=== PATIENT | male | born 1965 | race Caucasian/White ===

== ENCOUNTER 2022-01-05 00:25 | Inpatient (IN) ==
[2022-01-05] MEDS ORDERED: ONDANSETRON INJ 2 MG/ML 2 ML VIAL IV STA (01:21)
[2022-01-05] MEDS ORDERED: MoRPHine SULFATE 4 MG/ML 1 ML CARP\\VIAL IV STA (01:21)
[2022-01-05] MEDS ORDERED: SODIUM CHLORIDE 0.9% 500 ML IV ONE (01:22)
--- NOTE | 2022-01-05 01:24 | Emergency Department Note ---
Impression & Plan ST elevation (STEMI) myocardial infarction involving left anterior descending coronary artery, Liver mass, Chest pain ADMIT ED Provider Note HPI: The patient is a 56-year-old male who presents the emergency department with a chief complaint of epigastric "bloating" that he feels is radiating up into his chest for the past several days. Patient states he also has had some pain in his left shoulder that radiates down his left arm, he mentions that he has a history of shoulder pain and he has had this type of pain previously although this is a new episode. Patient denies any vomiting, states he does feel a sensation of increased gas and he has had belching and flatulence recently. On arrival here to the ED the patient is hemodynamically stable, he is in no acute distress on my initial assessment. ROS: -Cardio: Epigastric and substernal chest discomfort, left arm pain -GI: Sensation of gaseous distention *10 point review systems was conducted and is otherwise negative unless stated above *Outpatient medications and allergy history reviewed PE: General: Alert, NAD HEENT: Normocephalic, atraumatic Eyes: Extraocular eye movement is intact, no scleral erythema Pulmonary: Clear to auscultation bilaterally, no wheezing Cardio: Regular rate and rhythm GI: Abdomen is soft, nontender : No suprapubic tenderness MSK: No evidence of trauma or malformation of the extremities, no edema Skin: No evidence of rash Neuro: Alert, no focal deficits Psychiatric: Cooperative guest relations representative: - An order was placed for continuous cardiac monitoring - Patient was noted to be in sinus rhythm with a rate of 75 EKG # 1: Rate: 64 Rhythm: Normal sinus rhythm Intervals: Within normal limits ST changes: No ST elevation Time: 0039 EKG # 2: Rate: 68 Rhythm: Normal sinus rhythm Intervals: Within normal limits ST changes: No ST elevation noted in lead aVL in lead V2 with reciprocal ST depressions noted in the inferior leads Time: 0226 Medical Decision Making: Patient presented to the emergency department with a chief complaint of epigastric pain, chest pain, sensation of gastric distention, as well as left arm pain. On arrival here to the ED the patient was in no acute distress. IV was established, lab work obtained, EKG was obtained shortly after arrival, patient was placed on comptometrist. EKG does not show any acute ischemic c hanges initially, troponin did return elevated at approximately 200, ultrasound imaging of the gallbladder was obtained that shows evidence of an irregular appearing solid liver mass with vascular supply concerning for neoplasm. On my reevaluation when the patient returned from ultrasound he was having chest discomfort again, repeat EKG was obtained at 0226 that shows evidence of ST elevation in leads aVL and V2, this is consistent with acute STEMI. Heart alert was activated, patient was given p.o. aspirin. He was given an additional dose of morphine. Chest x-ray does not show any obvious widened mediastinum, patient is not significantly hypertensive and morphine did improve his pain. Low suspicion at this time for aortic dissection. Patient was evaluated by the hot dog vender following activation of heart alert, he was taken to the cardiac catheterization lab in stable condition for further care. We will plan for admission to the hospitalist service following cardiac catheterization, case was discussed with the on-call hospitalist for [facility], Dr. Huizar, who is updated and aware of the above findings including finding of liver mass on ultrasound imaging. US RUQ: Findings: PANC: LIMITED VIS DUE TO OVERLYING BOWEL GAS. LIVER: 20.6 cm. MASS WITH IRREGULAR BORDERS THAT APPEARS TO HAVE A VASCULAR SUPPLY AND 7mm CALC WITHIN. BEGINS IN LEFT LOBE OF LIVER AND EXTENDS INTO MIDLINE, measures 3.3 X 5.5 X 6.3. cm -ENTIRE RIGHT LOBE ECHOGENIC, -HYPOECHOIC LESION WITH TARGET APPEARANCE IN RIGHT LOBE, measures 1.4 X 1.5 X 1.4 cm. GB: WALL 1.4 mm. SLUDGE. NEGATIVE SCHAFER'S SIGN. 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 Radiologist: Edwin Echavarria MD * CRITICAL CARE TIME: ( 45 ) minutes -Treatment of acute ST elevation myocardial infarction requiring specialty consultation with interventional radiology, arrangement of transfer to cardiac catheterization lab for further care, interpretation of diagnostic studies including EKG, time spent at the bedside Diagnosis: 1. STEMI, acute 2. Liver mass 3. Chest pain, acute Disposition: Admission Cordell Machado DO Emergency Medicine Past Med/Surg History Medical History (Updated 01/05/22 @ 06:45 by Cordell Machado DO) No pertinent past medical history Surgical History No pertinent past surgical history Social History Smoking Status: Never smoker Hx Alcohol Use: No Hx Substance Use: No Preferred Language: Mauritian Communication Ability: Effective Radar Systems Engineer Required: No Beliefs That Will Affect Care: None Current Living Situation: Spouse Feels Safe at Home: Yes Safety Concerns: Feels Safe At This Time Assistive Devices: Glasses Allergies Allergies Allergy/AdvReac Type Severity Reaction Status Date / Time No Known Allergies Allergy Unverified 12/18/15 14:52 Home Meds Home Medications Medication Instructions Recorded Confirmed Clobetasol Propionate 0.05% 1 applic EXT PRN ALLERGIC REACTION 03/15/13 (Temovate 0.05%) ##0 TACROLIMUS (TOPICAL) (PROTOPIC) 1 applic topical ALLERGIC REACTION 03/15/13 ##0 Multivitamin 1 tab PO DAILY #0 tabs 12/18/15 VITAMIN E (VITAMIN E/D-ALPHA) 1 cap PO DAILY ##0 12/18/15 Previous Rx's Medication Instructions Recorded ASPIRIN (ASPIRIN EC) 81 mg PO DAILY ##30 03/16/13 Results & Data (ED) Vital Signs Vital Signs - 24 hr 01/05/22 00:35 01/05/22 01:30 01/05/22 02:21 Temperature 36.1 C L Temperature Source Temporal Artery Scan Pulse Rate 66 66 Pulse Rate [Apical] 73 Pulse Rate from SpO2 Sensor Respiratory Rate 18 16 20 Respiratory Effort / Characteristics Non-Labored Spontaneous Respiratory Depth Normal Blood Pressure 110/76 144/98 H Blood Pressure [Left Arm] 127/94 Blood Pressure Mean 87 113 Blood Pressure Mean [Left Arm] 105 Pulse Oximetry 96 98 99 Oxygen Delivery Method Room Air Room Air Room Air Sepsis Recent Fever Within 48 Hours No Sepsis New/Unexplained Change in Mental Status No Sepsis Action Taken by Nursing No Action Required 01/05/22 02:23 01/05/22 02:22 01/05/22 02:30 Temperature Temperature Source Pulse Rate 77 Pulse Rate [Apical] Pulse Rate from SpO2 Sensor 78 Respiratory Rate 19 Respiratory Effort / Characteristics Respiratory Depth Blood Pressure 127/94 Blood Pressure [Left Arm] Blood Pressure Mean 105 Blood Pressure Mean [Left Arm] Pulse Oximetry 99 98 Oxygen Delivery Method Room Air Room Air Sepsis Recent Fever Within 48 Hours Sepsis New/Unexplained Change in Mental Status Sepsis Action Taken by Nursing 01/05/22 02:51 01/05/22 03:00 Temperature Temperature Source Pulse Rate 68 63 Pulse Rate [Apical] Pulse Rate from SpO2 Sensor 68 Respiratory Rate 17 21 Respiratory Effort / Characteristics Respiratory Depth Blood Pressure 108/73 95/67 L Blood Pressure [Left Arm] Blood Pressure Mean 84 76 Blood Pressure Mean [Left Arm] Pulse Oximetry 94 96 Oxygen Delivery Method Room Air Room Air Sepsis Recent Fever Within 48 Hours Sepsis New/Unexplained Change in Mental Status Sepsis Action Taken by Nursing Laboratory Data Result diagrams: 01/05/22 04:49 01/05/22 00:50 Lab Results 01/05/22 01/05/22 01/05/22 Range/Units 00:50 00:50 02:36 WBC 8.61 (4.8-10.8) K/ul RBC 4.91 (4.63-6.08) M/uL Hgb 15.0 (14.0-18.0) g/dl Hct 44.8 (40.1-51.0) % MCV 91.2 (80.0-100.0) fL MCH 30.5 (25.0-34.0) pg MCHC 33.5 (32.0-36.0) g/dL RDW Std Deviation 41.5 (36.4-46.3) fL RDW Coeff of Yael 12.5 (11.5-14.5) % Plt Count 177 (130-400) K/uL MPV 11.0 (9.4-12.4) fL Immature Gran % (Auto) 0.6 % Neut % (Auto) 43.9 % Lymph % (Auto) 42.2 % [place] % (Auto) 10.7 % Eos % (Auto) 1.9 % Baso % (Auto) 0.7 % Neut # (Auto) 3.79 (1.4-6.5) K/uL Lymph # (Auto) 3.63 H (1.2-3.4) K/uL [place] # (Auto) 0.92 H (0.24-0.82) K/uL Eos # (Auto) 0.16 (0-0.50) K/uL Baso # (Auto) 0.06 (0-0.2) K/uL Immature Gran # (Auto) 0.05 H (0.00-0.02) K/uL Sodium 137 (136-145) mmol/L Potassium 4.1 (3.5-5.1) mmol/L Chloride 102 (98-107) mmol/L Carbon Dioxide 28 (21-32) mmol/L Anion Gap 7 (3-11) BUN 35 H (6-23) mg/dl Creatinine 1.23 (0.6-1.4) mg/dl Est Cr Clr Drug Dosing Not Reportable Est GFR ( Amer) 74.5 ml/min Est GFR (Non-Af Amer) 64.3 ml/min BUN/Creatinine Ratio 28.5 H (10-20) Glucose 159 H (70-99(Fasting)) mg/dl Calcium 9.4 (8.5-10.1) mg/dl Total Bilirubin 0.4 (0.2-1.0) mg/dl AST 31 (13-39) U/L ALT 55 H (7-52) U/L Alkaline Phosphatase 72 (34-104) U/L Troponin I High Sens 206.7 H* (0-20) pg/ml Total Protein 6.9 (6.0-8.3) gm/dl Albumin 4.2 (3.4-5.0) gm/dl Globulin 2.7 (2.5-4.0) gm/dl Albumin/Globulin Ratio 1.6 (0.9-2) Lipase 17 (11-82) U/L SARS-CoV-2, RNA, NAAT NEGATIVE (NEGATIVE) Administered Medications Discontinued Medications Aspirin (Aspirin Chew 324 Mg) 324 mg PO NOW STA Stop: 01/05/22 01:57 Last Admin: 01/05/22 02:15 Dose: 324 mg Documented By: LEOBARDO Fentanyl Citrate (Fentanyl Citrate 100 Mcg/2 Ml Vial) Confirm Administered Dose 100 mcg .ROUTE .STK-MED ONE Stop: 01/05/22 03:15 Last Admin: 01/05/22 04:09 Dose: 25 mcg Documented By: [id number] Heparin Sodium (Porcine) (Heparin Sod (Porcine) 1000 Unit/Ml) 1 units IV NOW ONE Stop: 01/05/22 02:13 Last Admin: 01/05/22 05:43 Dose: Not Given Documented By: BETINA Heparin Sodium (Porcine) (Heparin Sod (Porcine) 1000 Unit/Ml) 4,000 units IV NOW ONE Stop: 01/05/22 02:32 Last Admin: 01/05/22 05:42 Dose: Not Given Documented By: BETINA Heparin Sodium (Porcine) (Heparin (Porcine) 1000 Unit/Ml 10 Ml (Senior Hydrogeologist Use Only)) Confirm Administered Dose 10,000 units .ROUTE .STK-MED ONE Stop: 01/05/22 03:15 Last Admin: 01/05/22 04:09 Dose: 7,000 units Documented By: [id number] Heparin Sodium/Dextrose (Heparin Iv Adult Wt-Based Standard With Bolus Protocol) 1 each IV NOW STA; Protocol Stop: 01/05/22 01:58 Last Admin: 01/05/22 05:43 Dose: Not Given Documented By: BETINA Heparin Sodium/Sodium Chloride (Heparin In Nss Infusion 1000 Unit/500 Ml (2 U/Ml) Bag) Confirm Administered Dose 3,000 units IV .STK-MED ONE Stop: 01/05/22 03:15 Last Admin: 01/05/22 05:42 Dose: Not Given Documented By: BETINA Sodium Chloride (Nss) 500 mls @ 999 mls/hr IV .Q31M ONE Stop: 01/05/22 01:52 Last Infusion: 01/05/22 02:43 Dose: 0 mls/hr Documented By: Admin: 01/05/22 02:10 Dose: 999 mls/hr Documented By: LEOBARDO Heparin Sodium/Dextrose (Heparin Sodium/Dextrose) 25,000 units in 500 mls @ 0.02 mls/hr IV .Q24H [facility]; Protocol Stop: 02/04/22 02:14 Last Admin: 01/05/22 05:44 Dose: Not Given Documented By: BETINA Midazolam HCl (Midazolam Hcl 1 Mg/Ml 2ml Vial) Confirm Administered Dose 2 mg .ROUTE .STK-MED ONE Stop: 01/05/22 03:15 Last Admin: 01/05/22 04:08 Dose: 1 mg Documented By: [id number] Morphine Sulfate (Morphine Sulfate 4 Mg/Ml 1 Ml Carp\\Vial) 4 mg IV NOW STA Stop: 01/05/22 01:22 Last Admin: 01/05/22 02:19 Dose: 4 mg Documented By: LEOBARDO Nicardipine HCl (Nicardipine Hcl Inj 2.5 Mg/Ml 10 Ml Amp) Confirm Administered Dose 25 mg .ROUTE .STK-MED ONE Stop: 01/05/22 03:15 Last Admin: 01/05/22 05:42 Dose: Not Given Documented By: BETINA Nitroglycerin/Dextrose (Nitroglycerin/D5w 100mcg/Ml 20ml Syr) Confirm Administered Dose 2,000 mcg .ROUTE .STK-MED ONE Stop: 01/05/22 03:15 Last Admin: 01/05/22 05:43 Dose: Not Given Documented By: BETINA Ondansetron HCl (Ondansetron Inj 2 Mg/Ml 2 Ml Vial) 4 mg IV NOW STA Stop: 01/05/22 01:22 Last Admin: 01/05/22 02:19 Dose: 4 mg Documented By: LEOBARDO Ticagrelor (Ticagrelor 90 Mg Tab) Confirm Administered Dose 180 mg .ROUTE .STK- MED ONE Stop: 01/05/22 04:08 Last Admin: 01/05/22 04:10 Dose: 180 mg Documented By: [id number] Discharge Plan Visit Data Chief Complaint: Cardiac Assessment Stated Complaint: CHEST PAIN AND LEFT ARM PAIN ED Provider: Cordell Machado Discharge Problem: ST elevation (STEMI) myocardial infarction involving left anterior descending coronary artery, Liver mass, Chest pain Patient Disposition: Admitted As Inpatient Discharge Instructions Interventions: ED Discharge Assessment Last Done: 01/05/22 03:09
[2022-01-05 01:29] LABS: Basophils # (auto) 0.06 K/uL (0-0.2); Basophils % (auto) 0.7 %; Eosinophils # (auto) 0.16 K/uL (0-0.50); Eosinophils % (auto) 1.9 %; Hematocrit (blood only) 44.8 % (40.1-51.0); Immature Granulocytes # (auto) 0.05 K/uL (0.00-0.02); Immature Granulocytes % (auto) 0.6 %; Lymphocytes # (auto) 3.63 K/uL (1.2-3.4); Lymphocytes % (auto) 42.2 %; Mean Corpuscular Hemoglobin 30.5 pg (25.0-34.0); Mean Corpuscular Hgb Conc 33.5 g/dL (32.0-36.0); Mean Corpuscular Volume 91.2 fL (80.0-100.0); Monocytes # (auto) 0.92 K/uL (0.24-0.82); Monocytes % (auto) 10.7 %; Neutrophils # (auto) 3.79 K/uL (1.4-6.5); Neutrophils % (auto) 43.9 %; Platelet Count 177 K/uL (130-400); RDW Coefficient of Variation 12.5 % (11.5-14.5); RDW Standard Deviation 41.5 fL (36.4-46.3); Red Blood Count 4.91 M/uL (4.63-6.08); White Blood Count 8.61 K/ul (4.8-10.8)
[2022-01-05 01:45] LABS: Alanine Aminotransferase 55 U/L (7-52); Albumin Globulin Ratio 1.6 (0.9-2); Albumin Level 4.2 gm/dl (3.4-5.0); Alkaline Phosphatase 72 U/L (34-104); Anion Gap 7 (3-11); Aspartate Aminotransferase 31 U/L (13-39); BUN Creatinine Ratio 28.5 (10-20); Bilirubin,Total 0.4 mg/dl (0.2-1.0); Blood Urea Nitrogen 35 mg/dl (6-23); Calcium 9.4 mg/dl (8.5-10.1); Carbon Dioxide 28 mmol/L (21-32); Chloride 102 mmol/L (98-107); Est GFR (African American) 74.5 ml/min; Est GFR (Non-African American) 64.3 ml/min; Globulin 2.7 gm/dl (2.5-4.0); Glucose 159 mg/dl (70-99(Fasting)); Lipase 17 U/L (11-82); Potassium 4.1 mmol/L (3.5-5.1); Sodium 137 mmol/L (136-145); Total Protein 6.9 gm/dl (6.0-8.3)
[2022-01-05 01:53] LABS: Troponin I High Sensitivity 206.7 pg/ml (0-20)
[2022-01-05] MEDS ORDERED: ASPIRIN CHEW 324 MG PO STA (01:56)
[2022-01-05] MEDS ORDERED: Heparin IV Adult Wt-Based Standard WITH Bolus Protocol IV STA (01:57)
[2022-01-05] MEDS ORDERED: HEPARIN SOD (PORCINE) 1000 UNIT/ML IV ONE ×2 (02:12→02:31)
[2022-01-05] MEDS ORDERED: HEPARIN SODIUM/DEXTROSE 25,000 UNITS/500 ML BAG IV SCH (02:15)
[2022-01-05] MEDS ORDERED: MIDAZOLAM HCL 1 MG/ML 2ML VIAL ONE (03:14)
[2022-01-05] MEDS ORDERED: niCARdipine HCL INJ 2.5 MG/ML 10 ML AMP ONE (03:14)
[2022-01-05] MEDS ORDERED: fentaNYL citrate 100 MCG/2 ML VIAL ONE (03:14)
[2022-01-05] MEDS ORDERED: NITROGLYCERIN/D5W 100MCG/ML 20ML SYR ONE (03:14)
[2022-01-05] MEDS ORDERED: HEPARIN (PORCINE) 1000 UNIT/ML 10 ML (CATH LAB USE ONLY) ONE (03:14)
[2022-01-05] MEDS ORDERED: TICAGRELOR 90 MG TAB ONE (04:07)
[2022-01-05] MEDS ORDERED: TICAGRELOR 90 MG HOME PACK PO STA (04:13)
[2022-01-05] MEDS ORDERED: NITROGLYCERIN SL 0.4 MG/TAB TAB SL PRN (04:13)
--- NOTE | 2022-01-05 04:30 | Pre Anesthesia Assessment ---
Date of Service January 05, 2022 Pre Sedation Assessment Vital Signs Temp Pulse Pulse Resp BP BP Pulse Ox 01/05/22 03:00 63 21 95/67 L 96 01/05/22 02:51 68 17 108/73 94 01/05/22 02:30 77 19 98 01/05/22 02:22 127/94 01/05/22 02:23 99 01/05/22 02:21 73 20 127/94 99 01/05/22 01:30 66 16 144/98 H 98 01/05/22 00:35 36.1 C L 66 18 110/76 96 O2 Del Method 01/05/22 03:00 Room Air 01/05/22 02:51 Room Air 01/05/22 02:30 Room Air 01/05/22 02:22 01/05/22 02:23 Room Air 01/05/22 02:21 Room Air 01/05/22 01:30 Room Air 01/05/22 00:35 Room Air Cardiovascular RRR, no murmur, no edema Respiratory normal respiratory effort, lungs clear to auscultation Pre-Sedation Airway Assessment Smoking Status: Never smoker Mallampati II IV Notes The planned sedation has been discussed with the patient. Informed Consent was obtained. I have identified the patient, determined the appropriateness of sedation and have assessed the patient immediately prior to the procedure. All medicine(s) and interventions are by my order.
--- NOTE | 2022-01-05 04:33 | Post Anesthesia Assessment ---
Date of Service January 05, 2022 Post Sedation Assessment Vital Signs Temp Pulse Pulse Resp BP BP Pulse Ox 01/05/22 03:00 63 21 95/67 L 96 01/05/22 02:51 68 17 108/73 94 01/05/22 02:30 77 19 98 01/05/22 02:22 127/94 01/05/22 02:23 99 01/05/22 02:21 73 20 127/94 99 01/05/22 01:30 66 16 144/98 H 98 01/05/22 00:35 36.1 C L 66 18 110/76 96 O2 Del Method 01/05/22 03:00 Room Air 01/05/22 02:51 Room Air 01/05/22 02:30 Room Air 01/05/22 02:22 01/05/22 02:23 Room Air 01/05/22 02:21 Room Air 01/05/22 01:30 Room Air 01/05/22 00:35 Room Air Recovery Score Activity: Moves 4 extremities Respiration: Deep Breath/Cough Circulation: +/-20% PreAnes Value Consciousness: Fully Awake Oxygen Saturation: > 92% On Room Air Discharge Sedation Level of Care: Phase I Post Sedation Plan On clinical assessment, the patient appears to have tolerated the sedation without complications. Patient is recovering as anticipated. Patient will continue to be monitored by nursing and may be discharged when sedation discharge criteria are met per below protocol. Upon Completions of procedure up to 15 minutes continue every 5 minute vital signs and the P.A.R. score; then discharge to a Phase I or Fast Track to Phase II per the following guidelines: * Discharge Patient to appropriate Phase II area if PAR is 8 or greater or return to pre- procedure baseline. The post - procedure orders will be as directed. * If PAR score is less than 8 or not return to pre-procedure baseline then patient will follow Phase I monitoring till PAR is reached for Phase II. The Phase I may be done in procedure room or may call to secure a Phase I area. * If naloxone or flumazenil are used for reversal, hold in Phase I for tim nued monitoring from when last reversal dose was given for a minimum of 60 minutes or longer pending the nurse and/or physician discretion of patient condition before discharge to Phase II. Please call the Sedation Physician to re-evaluate and complete post-note for discharge to Phase II area. Do NOT discharge from procedure sedation or Phase 1 until post- sedation evaluation note is complete by procedure /sedation MD Sedation Discharge Instructions to be given to the patient at discharge to home. [facility] [place] [facility] [place] Procedure Codes (Charges) Indication for Procedure Indication for procedure: STEMI Sedation/Anesthesia Procedure 1: Sedation/Anesthesia: 16046 Mod Sedation by the same physician;Init15 Min Child Age 5 & Up Total Sedation Time (minutes): 15 Procedure 2: Sedation/Anesthesia: 50346 Mod Sedation by the same physician; Ea [id number] Minutes Total Sedation Time (minutes): 30
[2022-01-05 05:02] LABS: Basophils # (auto) 0.04 K/uL (0-0.2); Basophils % (auto) 0.4 %; Eosinophils # (auto) 0.04 K/uL (0-0.50); Eosinophils % (auto) 0.4 %; Hematocrit (blood only) 44.6 % (40.1-51.0); Hemoglobin 14.8 g/dl (14.0-18.0); Immature Granulocytes # (auto) 0.07 K/uL (0.00-0.02); Immature Granulocytes % (auto) 0.7 %; Lymphocytes % (auto) 8.9 %; Mean Corpuscular Hemoglobin 30.1 pg (25.0-34.0); Mean Corpuscular Hgb Conc 33.2 g/dL (32.0-36.0); Mean Corpuscular Volume 90.8 fL (80.0-100.0); Mean Platelet Volume 10.5 fL (9.4-12.4); Monocytes # (auto) 0.83 K/uL (0.24-0.82); Monocytes % (auto) 8.2 %; Neutrophils # (auto) 8.25 K/uL (1.4-6.5); Neutrophils % (auto) 81.4 %; Platelet Count 164 K/uL (130-400); RDW Coefficient of Variation 12.5 % (11.5-14.5); RDW Standard Deviation 41.3 fL (36.4-46.3); Red Blood Count 4.91 M/uL (4.63-6.08); White Blood Count 10.13 K/ul (4.8-10.8)
--- NOTE | 2022-01-05 05:09 | Cardiac Catheterization ---
ACC Data: Plumbing Warehouse Helper Cardiac Status Clinical evaluation leading to the procedure CAD Presenation: STEMI Anginal Classification: CCS IV Heart Failure: No Cardiogenic Shock within 24 Hours: No Cardiac Arrest within 24 Hours: No Imaging Studies Past 6 Months: No Stress Studies Past 6 Months: No Coronary Anatomy Dominant: Right Left Main (% Stenosis): Normal LAD (% Stenosis): Proximal (100% at first septal. Thrombus. MONICA 0 flow.) D1 (% Stenosis): Ostial (95% (jailed after stent implant LAD) MONICA I flow.) D2 (% Stenosis): Normal Circumflex (% Stenosis): Normal OM1 (% Stenosis): Normal OM2 (% Stenosis): Normal OM3 (% Stenosis): Normal L PL1 (% Stenosis): Normal RCA (% Stenosis): Mid (Mild less than 20%) R PDA (% Stenosis): Normal R PL1 (% Stenosis): Normal Diagnostic Physicians Name: Fili Fraga MD, PhD Closure Device Percutaneous Entry Location: Radial Recommendations: PCI without planned CABG and Management Recommendatons PCI Indication: PCI for STEMI - Stable First Noted: First EKG Lesion Segment Name: Proximal LAD Culprit Artery: Yes Stenosis Prior to Rx (%): 100 Chronic Total Occlusion: No Pre-Procedure MONICA Flow: 0 Previously Treated Lesion: No Lesion Complexity: Non-High/Non-C Lesion Length (mm): 10 mm Thrombus Present: Yes Bifurcation Lesion: Yes Guidewire Across Lesion: Yes Lesion #2 Segment Name: D1 Stenosis Prior to Rx (%): 95 Chronic Total Occlusion: No Pre-Procedure MONICA Flow: 1 Previously Treated Lesion: No Lesion Length (mm): 2 Thrombus Present: Yes Bifurcation Lesion: Yes Guidewire Across Lesion: Yes Intraprocedure Events Significant Disection: No Perforation: No Cardiac Cath Procedure Full Procedure Date January 05, 2022 Pre-Procedure Diagnosis Pre-Procedure Diagnosis: STEMI AUC Score AUC Score: 09 Post-Procedure Diagnosis Post-Procedure Diagnosis: Severe CAD Procedure(s) Performed Procedure(s) Performed: Coronary Angiography, Drug Eluting Stent and Ultrasound Guided Vascular Access Home Theatre Technician Fili Fraga MD, PhD Special Education Bus Driver(s) Rimma Vera RT Estimated Blood Loss Estimated Blood Loss: 20 ml Medication(s) Medication(s): Aspirin, Fentanyl, Heparin, Lidocaine 1%, Nicardipine, Nitroglycerin and Versed Summary of Findings Brief description: Patient was brought to the cardiac catheterization suite where he was shaved and prepped in a sterile fashion. Sedated using IV Versed and fentanyl. Soft tissues of the right wrist were anesthetized using 2 mL of 1% Xylocaine. Using ultrasound for guidance, the right radial artery was accessed and a 6 Stateless radial artery glide sheath was placed. Patient was provided anticoagulation with IV heparin and antispasmodics including verapamil and nitroglycerin. All catheters were advanced and exchanged over a 0.035 J-tip wire. Left coronary angiography in orthogonal views was performed with a 6 Stateless EBU 3.0 guide catheter. We then proceeded with PCI. Right coronary angiography was performed in orthogonal views using a 5 Stateless 3 DRC diagnostic catheter after completion of PCI. Patient was provided IV heparin. ACT was checked intermittently to ensure therapeutic anticoagulation during procedure. A BMW universal was advanced through the EBU guide catheter and positioned distally in the LAD. The lesion was then predilated with a 2.5 x 12 mm trek balloon up to 18 magaly. Balloon was removed and angiography performed. A 2.75 x 15 mm Marcel drug-eluting stent was then advanced and positioned across the lesion. It was deployed at 14 magaly. The balloon was removed and coronary angiography was performed. We then postdilated the proximal portion of the stent using a 3.0 x 8 mm NC trek. 16 magaly was utilized with the proximal balloon marker at the proximal stent edge. This was deflated and the balloon was advanced in the proximal to mid stent where this was postdilated to 14 magaly. The balloon was then removed. The diagonal branch had significant jailing from the stent and reduced MONICA flow. Therefore, a new BMW #7 guidewire was exchanged for the first and was advanced into the stent where it was redirected across the ostium of the diagonal and positioned distally. The initial attempt to cross with a 2.0 x 6 mm NC sprinter was unsuccessful. Therefore, a 1.5 x 8 mm trek balloon was advanced and successfully used to cross the stent strut across the ostium of the diagonal. This was then dilated up to 14 magaly. A second inflation was performed to 17 magaly and the balloon was then deflated and removed. The 2.0 x 6 mm NC sprinter balloon was reinserted and successfully used to cross the ostium. The jailed ostium was then postdilated up to 14 magaly. The balloon was deflated and removed. A final attempt to cross a 2.25 x 6 mm NC sprinter balloon was unsuccessful. We had good flow in the diagonal and further attempts were abandoned. The guidewire and balloon were removed. Final angiographic evaluation was performed. The guide catheter was then removed over the J-wire. We completed diagnostic RCA angiography as above. All catheters were removed. Radial artery sheath was removed. Hemostasis was obtained using a TR band. Patient was hemodynamically stable and asymptomatic. He was subsequently admitted to the intensive care unit for further management. This ended the case. Coronary angiography and PCI findings: LMT: Large caliber vessel bifurcating into the LAD and left circumflex. Mild luminal irregularities. LAD: Large caliber vessel. 100% occluded proximally at the level of the first septal. MONICA 0 flow. Left circumflex: Large caliber and nondominant. Travels in the AV groove giving 2 small obtuse marginal branches and an atrial branch. Then, there is a large caliber branching OM 3. The vessel continues distally in the AV groove where it begins to taper. It provides a medium to large caliber posterolateral and then terminates distally in the AV groove. No angiographically evident disease in the circumflex or its branches. RCA: Large caliber and dominant vessel. Bifurcates distally into a large branching posterolateral and a large caliber PDA. There is mild to moderate calcification in the mid RCA. There is associated mild plaque less than 20% stenosis. The remainder of the RCA and its branches have no more than mild luminal irregularities. PCI of LAD: 100% occlusion is reduced to 0% residual stenosis post PCI MONICA-3 flow post PCI No evidence of dissection or perforation post PCI A medium to large caliber branching first diagonal is revealed. MONICA II-III flow is noted. Ostium is jailed with 50% stenosis. 2 smaller additional diagonal branches are noted. The mid and distal LAD are noted to have no significant occlusive disease. Hemodynamics Rest Ao:: 120/83 mmHg, mean 99 mmHg Final Ao: 100/80 mmHg, mean 91 mmHg LV: Not performed Recommendations Recommendations: PCI without planned CABG and Management Recommendatons Radiation Exposure (mGy) 2392 mGy, 15.7 minutes fluoroscopy time Contrast (mls) 120 mL Procedural Complication(s) None Disposition ICU I attest to the content of the Intraoperative Record and any orders documented therein. Any exceptions are noted below. [facility] Card [facility] Procedure Codes Cardiac Catheterization Procedure 1: Cardiovascular Cath Procedures: 15052 Coronaries Therapeutic Services & Ancillary Procedure 1: Cardiovascular Tx and Anc Procedures: 42910 Ultrasonic Guidance Vascular Access Moderate Sedation Procedure 1: Sedation/Anesthesia: 09663 Mod Sedation by the same physician;Init15 Min Child Age 5 & Up Procedure 2: Sedation/Anesthesia: 70704 Mod Sedation by the same physician; Ea Additio nal15 Minutes Procedure 3: Sedation/Anesthesia: 92771 Mod Sedation by the same physician; Ea [id number] Minutes Angioplasty Procedure 1: Cardiovascular Angioplasty Procedures: 14094 PTCA; ea addl branch of a major cor art RC LC LD (D1 of LAD) Stenting Procedure 1: Cardiovascular Stent Procedures: 64509 Perc transluminal revascularization of acute sub/total occl, aMI (LAD) PG Care Time/CCT Total # of Minutes Spent Total Time Spent with Patient: Total time spent is greater than 50% in coordination of care (as documented) at patient's floor/unit and/or counseling patient:
--- NOTE | 2022-01-05 05:27 | Cardiology Consultation ---
Date of Consultation January 05, 2022 Assessment & Plan (1) ST elevation (STEMI) myocardial infarction involving left anterior descending coronary artery: Patient was taken to the [facility] undergoing PCI of the proximal to mid LAD with implantation of a drug-eluting stent. Jailed diagonal improved flow post PTCA of the ostium of the diagonal. Patient is now without symptoms. Suspect this was a late presenting MO given his history. We will trend his troponin. Suspect he has significant LV dysfunction at this time given proximal LAD occlusion of significant duration. An echocardiogram to evaluate LVEF, wall motion, and valves will be performed. He will be on aspirin 81 mg daily and Brilinta 90 mg p.o. twice daily for at least 1 year. We will begin guideline directed medical therapy for secondary prevention of coronary disease as below. Patient is admitted to the intensive care unit for further work-up and management. If this is in fact a late presenting ST elevation MO then he remains at risk for mechanical complication of AMI so we will keep him in the hospital for at least 48 hours. Present on Admission?: Yes (2) Coronary artery disease: In addition to aspirin, he will be started on high intensity statin therapy, and we will initiate metoprolol tartrate 25 mg p.o. twice daily titrating up for target heart rate and blood pressure. Present on Admission?: Yes (3) Atherogenic dyslipidemia: Patient is considered high risk. We will also see if he has occult diabetes by checking a hemoglobin A1c. Under current guidelines he is recommended for high intensity statin therapy with aggressive LDL reduction. Checking fasting lipid panel for baseline LDL which should be reduced by 50% with high intensity statin therapy over time. Currently started on a atorvastatin 40 mg daily which will be adjusted as an outpatient. Present on Admission?: Yes Plan Patient will remain in the ICU for 24 hours. Then, assuming no complications he will be appropriate to transfer to the stepdown unit. We will request cardiac rehab phase 1 be initiated. Anticipate he will be appropriate for discharge within 48 hours. History of Present Illness Reason for Consultation: Acute MO Attending Physician: Fili Fraga MD, PhD History of Present Illness 56-year-old gentleman without prior cardiac history presented to the emergency department with complaints of chest heaviness, indigestion, malaise, and shortness of breath. EKG noted evidence of acute MO. A "heart alert" was called and on my arrival the patient continued with mild symptoms. He reports stuttering chest discomfort over the past 3 days. Yesterday the symptoms worsened but he still felt that they were indigestion. However, overnight he continued to feel worse and decided to seek medical attention in the emergency department. He has had no prior episodes and no prior cardiac issues. Patient denies dyspnea at rest, syncope, near syncope, orthopnea, PND, racing heartbeat, palpitations, or edema. Allergies Allergy/AdvReac Type Severity Reaction Status Date / Time No Known Allergies Allergy Unverified 12/18/15 14:52 Home Medications Medication Instructions Recorded Confirmed Type Clobetasol Propionate 0.05% 1 applic EXT PRN ALLERGIC REACTION 03/15/13 History (Temovate 0.05%) ##0 TACROLIMUS (TOPICAL) (PROTOPIC) 1 applic topical ALLERGIC REACTION 03/15/13 History ##0 ASPIRIN (ASPIRIN EC) 81 mg PO DAILY ##30 03/16/13 Rx Multivitamin 1 tab PO DAILY #0 tabs 12/18/15 History VITAMIN E (VITAMIN E/D-ALPHA) 1 cap PO DAILY ##0 12/18/15 History Patient History Medical History (Updated 01/05/22 @ 05:22 by Fili Fraga MD, PhD) No pertinent past medical history Surgical History No pertinent past surgical history Social History Smoking Status: Never smoker Feels Safe at Home: Yes Review of Systems Review of Systems: Denies fevers, chills, cough, sputum production, abdominal discomfort, numbness, tingling, confusion. Denies dysuria, hematuria, melena, hematochezia, hemoptysis. Remainder of his 12 point review of systems is negative except as per HPI Physical Exam Constitutional: WD/WN, vitals as above (Mildly uncomfortable.) Eyes: PERRL, conjunctivae normal, anicteric sclerae ENMT: external ear and nose normal, oropharynx normal Neck: No JVD. No bruits. Respiratory: normal respiratory effort, lungs clear to auscultation (No wheezing, rhonchi, or rales.) Cardiovascular: Regular rate and rhythm. S4 gallop. Do not appreciate any rubs or murmurs. Chest (Breasts): Additional Comments: Nontender. Gastrointestinal (Abdomen): NABS. Musculoskeletal: 1+ bilateral radial pulses. Distal lower extremity pulses are 2+ and symmetric. No edema. Neurologic: Cognition is intact. Speech is fluent. No focal deficits. No tremor. Psychiatric: A+Ox3, euthymic affect Results & Data ([facility]) Vital Signs (Past 12 Hours) Vital Signs Temp Pulse Pulse Resp BP BP Pulse Ox 01/05/22 03:00 63 21 95/67 L 96 01/05/22 02:51 68 17 108/73 94 01/05/22 02:30 77 19 98 01/05/22 02:22 127/94 01/05/22 02:23 99 01/05/22 02:21 73 20 127/94 99 01/05/22 01:30 66 16 144/98 H 98 01/05/22 00:35 36.1 C L 66 18 110/76 96 O2 Del Method 01/05/22 03:00 Room Air 01/05/22 02:51 Room Air 01/05/22 02:30 Room Air 01/05/22 02:22 01/05/22 02:23 Room Air 01/05/22 02:21 Room Air 01/05/22 01:30 Room Air 01/05/22 00:35 Room Air PG Care Time/CCT Total # of Minutes Spent Total Time Spent with Patient: Total time spent is greater than 50% in coordination of care (as documented) at patient's floor/unit and/or counseling patient: Critical Care Time: Yes Total Critical Care Time: 45 I total of 45 minutes was spent in initial evaluation, discussion with family, review of records, interpretation of the EKG, formulation of and implementation of a plan of care with all associated documentation. This is exclusive of the time spent for the cardiac catheterization[place] [address] Inpt Consult Level 5 Patient Type New History Comprehensive Exam Detailed Medical Decision Making High Complexity Diagnoses ST elevation (STEMI) myocardial infarction involving left anterior descending coronary artery I21.02 Coronary artery disease I25.10 Atherogenic dyslipidemia E78.5 Additional Codes Critical Care Time - Critical Care Time: Yes ([id number])
[2022-01-05 05:28] LABS: Chol HDL Ratio 4.3 (0-5)
[2022-01-05] MEDS ORDERED: ICU PROTOCOL FOR HYPERGLYCEMIA PRN (05:37)
[2022-01-05 06:46] LABS: Estimated Average Glucose 114 mg/dl; Hemoglobin A1C 5.6 % (4.5-5.6)
--- NOTE | 2022-01-05 07:15 | Consultation Report ---
DATE OF CONSULTATION: 01/05/2022. CHIEF COMPLAINT: ST elevated NE. HISTORY OF PRESENT ILLNESS: This is a 56-year-old male with past medical history significant for hyperlipidemia, patent foramen ovale, history of low- grade glioma of brain, allergic and contact dermatitis, anxiety state, who presents with chest pain and found to have ST elevated NE. The patient is having chest pain going on for last one and half day and has some bloating in the stomach. He thought it was GI related, but yesterday he was not getting better, 5/10 chest pain all over the chest, radiated to the left arm. When he came to the ER, initial EKG was okay, but when he came back from ultrasound of abdomen, repeat EKG showed ST elevations in the anterior leads. The patient is status post cardiac catheterization, 100% occlusion of LAD, status post stent, and also angioplasty of the diagonal , tolerated the procedure okay. Currently, chest pain resolved and abdominal discomfort has resolved. Resting comfortably. Denies any headache. No blurred visions, no earache, no runny nose, no sore throat. No cough. Otherwise, appetite is okay. No neck pain. Currently, no shortness of breath, no nausea, feeling hungry. Normal bowel and bladder movements. Before this, he was ambulating fine. The patient has had low-grade glioma of brain, diagnosed in 2012. As per [facility], his 2015 MRI scan, no change. Supposed to get MRI scans every two years. He states his last MRI scan was 4 years ago and was stable. Hence since it has been stable, he was not doing anymore MRIs. ALLERGIES: PREDNISONE. PAST MEDICAL HISTORY: As mentioned above. PAST SURGICAL HISTORY: Left knee arthroscopy, repair, cardiac catheterization, and stent placement. MEDICATIONS: As per Epic, he is on Zoloft 25 mg p.o. daily, clobetasol external ointment p.r.n., simvastatin 20 mg p.o. at bedtime, meclizine 25 mg p.o. t.i.d. p.r.n., aspirin 81 mg p.o. daily. FAMILY HISTORY: Significant for sister has arthritis, mother has cardiac stents, maternal grandfather had bypass surgery. SOCIAL HISTORY: . No smoking, no alcohol, no drug use. REVIEW OF SYSTEMS: As per HPI. Rest of the review of systems is negative. PHYSICAL EXAMINATION: GENERAL: The patient is of moderate build, not in acute distress. VITAL SIGNS: Temperature 36.6, pulse 85, respiratory rate 23, blood pressure 112/85, oxygen 97% on room air. HEENT: Extraocular muscles intact. Oral mucosa moist. NECK: No JVD. No neck masses. CARDIOVASCULAR: S1 and S2 heard. Regular rate and rhythm. No murmur, no gallop. RESPIRATORY SYSTEM: Normal AP diameter. No accessory muscle use. No wheezing, no crackles. ABDOMEN: Soft, bowel sounds present, nontender, no distention. CENTRAL NERVOUS SYSTEM: Cranial nerves II through XII are grossly intact, nonfocal. EXTREMITIES: Right radial cardiac catheterization site seems okay. No lower extremity edema or erythema. LABORATORY DATA: WBC 10.1, hemoglobin 14.8, hematocrit 44.6, platelets 164. Sodium 137, potassium 4.1, chloride 102, bicarbonate 28, BUN 35, creatinine 1.2, serum glucose 159, calcium 9.4, total bilirubin 0.4, AST 31, ALT 55, alkaline phosphatase 72. Troponin I high sensitivity 206. LDL cholesterol 143, HDL 46. Lipase 17. SARS-CoV-2 rapid test negative. IMAGING DATA: Chest x-ray, seems to have no acute findings. 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 EKG: Normal sinus rhythm at a rate of 68. ST elevations in the anterior leads. ASSESSMENT AND PLAN: This 56-year-old male presents with chest pain, found to be on ST elevated myocardial infarction. 1. ST elevated myocardial infarction: Status post cardiac catheterization, 100% occlusion of left anterior descending. Status post stent and angioplasty of the diagonal. Management as per Cardiology. Placed on aspirin, high-dose statin, metoprolol, Brilinta. Follow up echocardiogram. Closely monitor in the ICU for now. 2. History of hyperlipidemia: On statin. 3. Liver mass: Needs workup when stable cardiac-garsia. 4. History of low-grade glioma of brain as per the neurology notes in 2014. He had a right parietotemporal lesion. Seems to be low-grade glioma. Supposed to follow with repeat MRI scans. He states the last MRI scan was 4 years ago. May need to get another MRI scan as he is having liver masses. 5. Deep venous thrombosis prophylaxis and disposition as per Cardiology. Level 1 full code. Job ID: [id number] MTDD
--- NOTE | 2022-01-05 07:23 | Ultrasound Report ---
ULTRASOUND RIGHT UPPER QUADRANT ABDOMEN CLINICAL HISTORY: Right upper quadrant abdominal pain. COMPARISON STUDY: No priors. TECHNIQUE: Real-time, grayscale, and color flow sonography of the right upper quadrant of the abdomen was performed. Images are reviewed in the transverse and longitudinal planes. FINDINGS: Liver: The liver is enlarged and demonstrates heterogeneous increased echotexture indicating steatosi s. There is no intrahepatic biliary ductal dilatation. The main portal vein is patent. There is a 6.3 x 3.3 x 5.5 cm irregular/lobulated appearing hypoechoic mass lesion suggested in the left lobe. This may contain internal calcification and shows internal flow on color imaging. There is an additional indeterminate 1.5 cm hypoechoic lesion in the right lobe. Gallbladder: There is biliary sludge. No shadowing gallstones are identified. There is no gallbladder wall thickening or pericholecystic fluid. A sonographic Lazaro's sign is reportedly absent. The comm on bile duct measures up to 0.6 cm in diameter. Pancreas: Visualized portions of the pancreatic head and body are normal in appearance. The splenic v ein is patent. Right kidney: Survey images of the right kidney demonstrate normal size and echotexture. There is no hydronephrosis. Ascites: None. IMPRESSION: 1. No acute sonographic abnormality is seen in the right upper quadrant. 2. Hepatomegaly and hepatic steatosis. 3. There are at least 2 pathologically indeterminate hypoechoic liver lesions. The largest is in the left lobe and measures up to 6.3 cm. Although these could represent benign lesions such as hemangioma s, neoplasm is not excluded and is the diagnosis of exclusion. Correlation with a contrast-enhanced l iver protocol CT scan is recommended for further evaluation. 4. Biliary sludge. There are no shadowing gallstones, and no sonographic evidence of acute cholecysti tis. ACT 112: Positive. There are findings on this exam that require communication between the performing entity and the patient following Patient Test Result Information Act ([place] Act 112) guidelines. Electronically signed by: Noé Madden M.D. 01/05/2022 7:22 AM
--- NOTE | 2022-01-05 07:52 | Critical Care Consultation ---
Date of Consultation January 05, 2022 Assessment & Plan (1) ST elevation (STEMI) myocardial infarction involving left anterior descending coronary artery: ICU Assessment and Plans Reason Critically Ill: 56-year-old male with past medical history significant for hyperlipidemia, patent foramen ovale, history of low-grade glioma of brain, who presents with chest pain and found to have STEMI, admitted to ICU s/p cardiac cath. 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 Hepatomegaly and hepatic steatosis. There are at least 2 pathologically indeterminate hypoechoic liver lesions. The largest is in the left lobe and measures up to 6.3 cm. Although these could represent benign lesions such as hemangiomas, neoplasm is not excluded and is the diagnosis of exclusion. Correlation with a contrast-enhanced liver protocol CT scan is recommended for further evaluation. Biliary sludge. There are no shadowing gallstones, and no sonographic evidence of acute cholecystitis. Elevated Liver enzymes -likely 2/2 to recent STEMI -AST 135, ALT 68 -continue to monitor RENAL/LYTES - No significant electrolyte derangement. Replace lytes as needed. BUN 29 - No concerns at this time. ENDO - No concerns at this time. A1c 5.6 HEME - Stable H&H. Will monitor for any drops ID - No concerns for infection at this point. INTEGUMENTARY - Skin clean dry intact LINES/IV ACCESS - PIVs intact. DVT PROPHYLAXIS - ASA 81mg daily -SCDs ordered Thank you for allowing us to be part of this patient's care. Please refer to Dr. Castellano's documentation for any further recommendations. (2) Coronary artery disease: (3) Atherogenic dyslipidemia: Supervising Physician Co-Signing Physician Notes Dr. Leslie was the resident-physician during care of patient. I separately evaluated patient for cotton portions of the history and the exam. I was present during the critical portion of medical decision making, and I discussed the case with the resident. I generally agree with the findings and plan except for any additions/exceptions noted. 56-year-old male presented to the hospital with complaints of left-sided chest pain He was found to have STEMI and was taken to [facility] Support Specialist MARIA DE JESUS was placed in the mid LAD At the time of examination patient denied any issues when it comes to his breathing Denies any chest pain, no headache, no nausea, no vomiting He had just finished breakfast. No dizziness. Constitutional: No acute distress HEENT: EOMI, PERRLA Respiratory system: Good air entry bilaterally, no wheeze, rhonchi, mild crackles bilateral lower lobes CVS: S1-S2 positive, no murmurs or gallops Abdomen: Soft, nontender, nondistended, positive bowel sounds x4 Extremities: +2 pulses bilaterally radialis/ dorsalis pedis, no cyanosis, no edema Neuro: Awake alert oriented x3 Psych: Normal mood and affect G/U: No Castro Plan: Continue with dual anti-platelet therapy Start heparin/Lovenox tomorrow Continue to trend troponin and EKG He does have mild elevation in AST and ALT I think this is most likely coming from [place] rather than any liver injury. Continue to trend Please note the above document was generated using voice recognition software. It may contain grammatical, syntax or spelling errors.Any formal questions or concerns about the content, text or information contained within the body of this dictation should be directly addressed to the provider for clarification. History of Present Illness Reason for Consultation: STEMI Requesting Physician: Prado MD Attending Physician: Fili Fraga MD, PhD History of Present Illness This is a 56-year-old male with past medical history significant for hyperlipidemia, patent foramen ovale, history of low-grade glioma of brain per neurology records, who presents with chest pain and found to have STEMI, ad mitted to ICU s/p cardiac cath. Patient states for the last few days he felt ongoing heartburn not relived by Tums, last night symptoms progressed to chest heaviness he and his went to ED found to have STEMI. Cardiac cath placed 1 stent in LAD for 100% occlusion. Patient states post procedure he feels good, no longer had chest heaviness, denies chest pain SOB nausea vomitting fever chills. Patient states he has a history of high cholesterol, only medication he's on is a statin. He denies smoking alcohol illicit drugs. Allergies Allergy/AdvReac Type Severity Reaction Status Date / Time No Known Allergies Allergy Unverified 12/18/15 14:52 Home Medications Medication Instructions Recorded Confirmed Type Clobetasol Propionate 0.05% 1 applic EXT PRN ALLERGIC REACTION 03/15/13 History (Temovate 0.05%) ##0 TACROLIMUS (TOPICAL) (PROTOPIC) 1 applic topical ALLERGIC REACTION 03/15/13 History ##0 ASPIRIN (ASPIRIN EC) 81 mg PO DAILY ##30 03/16/13 Rx Multivitamin 1 tab PO DAILY #0 tabs 12/18/15 History VITAMIN E (VITAMIN E/D-ALPHA) 1 cap PO DAILY ##0 12/18/15 History Patient History Medical History (Updated 01/05/22 @ 12:36 by Felipe Bradford DO) No pertinent past medical history Surgical History No pertinent past surgical history Social History Smoking Status: Never smoker Hx Alcohol Use: No Hx Substance Use: No Preferred Language: Angolan Communication Ability: Effective Tax Adjuster Required: No Beliefs That Will Affect Care: None Current Living Situation: Spouse Feels Safe at Home: Yes Safety Concerns: Feels Safe At This Time Assistive Devices: Glasses Review of Systems Review of Systems: Negative fever chills Negative headache dizziness Negative chest pain palpitations SOB Negative nausea vomitting diarrhea constipation Negative numbness tingling rash swelling Physical Exam Constitutional: WD/WN, vitals as above Eyes: PERRL, conjunctivae normal, anicteric sclerae ENMT: external ear and nose normal, oropharynx normal Neck: trachea midline, no thyromegaly Respiratory: normal respiratory effort, lungs clear to auscultation Cardiovascular: RRR, no murmur, no edema Chest (Breasts): Chest: normal inspection of chest Gastrointestinal (Abdomen): Inspection/Auscultation: abdomen normal to inspection Percussion/Palpation: abdomen soft; abdomen nontender Skin: no rashes, warm and dry Psychiatric: A+Ox3, euthymic affect Results & Data Results & Data ([facility]) Vital Signs (Past 12 Hours) Vital Signs Temp Pulse Pulse Resp BP BP Pulse Ox 01/05/22 06:59 76 18 109/83 93 01/05/22 06:30 82 20 124/76 93 01/05/22 06:15 81 20 97 01/05/22 06:00 75 16 117/79 96 01/05/22 05:59 73 17 112/73 94 01/05/22 05:45 75 20 93 01/05/22 05:45 118/79 01/05/22 05:30 82 18 93 01/05/22 05:30 112/85 01/05/22 05:20 73 18 94 01/05/22 05:38 01/05/22 05:29 85 23 112/85 97 01/05/22 04:47 01/05/22 04:59 76 15 120/78 96 01/05/22 04:44 76 16 122/91 96 01/05/22 04:30 36.6 C 83 20 140/89 94 01/05/22 03:00 63 21 95/67 L 96 01/05/22 02:51 68 17 108/73 94 01/05/22 02:30 77 19 98 01/05/22 02:22 127/94 01/05/22 02:23 99 01/05/22 02:21 73 20 127/94 99 01/05/22 01:30 66 16 144/98 H 98 01/05/22 00:35 36.1 C L 66 18 110/76 96 Pulse Ox O2 Del Method O2 Del Method 01/05/22 06:59 Room Air 01/05/22 06:30 Room Air 01/05/22 06:15 Room Air 01/05/22 06:00 Room Air 01/05/22 05:59 Room Air 01/05/22 05:45 01/05/22 05:45 01/05/22 05:30 01/05/22 05:30 01/05/22 05:20 01/05/22 05:38 96 Room Air 01/05/22 05:29 Room Air 01/05/22 04:47 95 Room Air 01/05/22 04:59 Room Air 01/05/22 04:44 Room Air 01/05/22 04:30 Room Air 01/05/22 03:00 Room Air 01/05/22 02:51 Room Air 01/05/22 02:30 Room Air 01/05/22 02:22 01/05/22 02:23 Room Air 01/05/22 02:21 Room Air 01/05/22 01:30 Room Air 01/05/22 00:35 Room Air Diagnostic Findings Laboratory Results WBC 10.13 K/ul (4.8-10.8) 01/05/22 04:49 RBC 4.91 M/uL (4.63-6.08) 01/05/22 04:49 Hgb 14.8 g/dl (14.0-18.0) 01/05/22 04:49 Hct 44.6 % (40.1-51.0) 01/05/22 04:49 MCV 90.8 fL (80.0-100.0) 01/05/22 04:49 MCH 30.1 pg (25.0-34.0) 01/05/22 04:49 MCHC 33.2 g/dL (32.0-36.0) 01/05/22 04:49 RDW Std Deviation 41.3 fL (36.4-46.3) 01/05/22 04:49 RDW Coeff of Yael 12.5 % (11.5-14.5) 01/05/22 04:49 Plt Count 164 K/uL (130-400) 01/05/22 04:49 MPV 10.5 fL (9.4-12.4) 01/05/22 04:49 Immature Gran % (Auto) 0.7 % 01/05/22 04:49 Neut % (Auto) 81.4 % 01/05/22 04:49 Lymph % (Auto) 8.9 % 01/05/22 04:49 Arroyo % (Auto) 8.2 % 01/05/22 04:49 Eos % (Auto) 0.4 % 01/05/22 04:49 Baso % (Auto) 0.4 % 01/05/22 04:49 Neut # (Auto) 8.25 K/uL (1.4-6.5) H 01/05/22 04:49 Lymph # (Auto) 0.90 K/uL (1.2-3.4) L 01/05/22 04:49 Arroyo # (Auto) 0.83 K/uL (0.24-0.82) H 01/05/22 04:49 Eos # (Auto) 0.04 K/uL (0-0.50) 01/05/22 04:49 Baso # (Auto) 0.04 K/uL (0-0.2) 01/05/22 04:49 Immature Gran # (Auto) 0.07 K/uL (0.00-0.02) H 01/05/22 04:49 Sodium 137 mmol/L (136-145) 01/05/22 00:50 Potassium 4.1 mmol/L (3.5-5.1) 01/05/22 00:50 Chloride 102 mmol/L (98-107) 01/05/22 00:50 Carbon Dioxide 28 mmol/L (21-32) 01/05/22 00:50 Anion Gap 7 (3-11) 01/05/22 00:50 BUN 35 mg/dl (6-23) H 01/05/22 00:50 Creatinine 1.23 mg/dl (0.6-1.4) 01/05/22 00:50 Est Cr Clr Drug Dosing Not Reportable 01/05/22 00:50 Est GFR ( Amer) 74.5 ml/min 01/05/22 00:50 Est GFR (Non-Af Amer) 64.3 ml/min 01/05/22 00:50 BUN/Creatinine Ratio 28.5 (10-20) H 01/05/22 00:50 Glucose 159 mg/dl (70-99(Fasting)) H 01/05/22 00:50 POC Glucose 114 mg/dl (70-99) H 01/05/22 05:54 Estimat Average Glucose 114 mg/dl 01/05/22 04:49 Hemoglobin A1c 5.6 % (4.5-5.6) 01/05/22 04:49 Calcium 9.4 mg/dl (8.5-10.1) 01/05/22 00:50 Total Bilirubin 0.4 mg/dl (0.2-1.0) 01/05/22 00:50 AST 31 U/L (13-39) 01/05/22 00:50 ALT 55 U/L (7-52) H 01/05/22 00:50 Alkaline Phosphatase 72 U/L (34-104) 01/05/22 00:50 Troponin I High Sens 206.7 pg/ml (0-20) H* 01/05/22 00:50 Total Protein 6.9 gm/dl (6.0-8.3) 01/05/22 00:50 Albumin 4.2 gm/dl (3.4-5.0) 01/05/22 00:50 Globulin 2.7 gm/dl (2.5-4.0) 01/05/22 00:50 Albumin/Globulin Ratio 1.6 (0.9-2) 01/05/22 00:50 Triglycerides 60 mg/dl (0-150) 01/05/22 04:49 Cholesterol 199 mg/dl (0-200) 01/05/22 04:49 LDL Cholesterol Direct 143 mg/dl 01/05/22 04:49 LDL Cholesterol, Calc 141 mg/dl 01/05/22 04:49 VLDL Cholesterol, Calc 12 mg/dl (0-30) 01/05/22 04:49 HDL Cholesterol 46 mg/dl 01/05/22 04:49 Cholesterol/HDL Ratio 4.3 (0-5) 01/05/22 04:49 Lipase 17 U/L (11-82) 01/05/22 00:50 Nasal Screen MRSA (PCR) Negative (Negative) 01/05/22 04:30 SARS-CoV-2, RNA, NAAT NEGATIVE (NEGATIVE) 01/05/22 02:36 Impressions Gallbladder Ultrasound 01/05/22 01:20 ULTRASOUND RIGHT UPPER QUADRANT ABDOMEN CLINICAL HISTORY: Right upper quadrant abdominal pain. COMPARISON STUDY: No priors. TECHNIQUE: Real-time, grayscale, and color flow sonography of the right upper quadrant of the abdomen was performed. Images are reviewed in the transverse and longitudinal planes. FINDINGS: Liver: The liver is enlarged and demonstrates heterogeneous increased echotexture indicating steatosis. There is no intrahepatic biliary ductal dilatation. The main portal vein is patent. There is a 6.3 x 3.3 x 5.5 cm irregular/lobulated appearing hypoechoic mass lesion suggested in the left lobe. This may contain internal calcification and shows internal flow on color imaging. There is an additional indeterminate 1.5 cm hypoechoic lesion in the right lobe. Gallbladder: There is biliary sludge. No shadowing gallstones are identified. There is no gallbladder wall thickening or pericholecystic fluid. A sonographic Lazaro's sign is reportedly absent. The common bile duct measures up to 0.6 cm in diameter. Pancreas: Visualized portions of the pancreatic head and body are normal in appearance. The splenic vein is patent. Right kidney: Survey images of the right kidney demonstrate normal size and echotexture. There is no hydronephrosis. Ascites: None. IMPRESSION: 1. No acute sonographic abnormality is seen in the right upper quadrant. 2. Hepatomegaly and hepatic steatosis. 3. There are at least 2 pathologically indeterminate hypoechoic liver lesions. The largest is in the left lobe and measures up to 6.3 cm. Although these could represent benign lesions such as hemangiomas, neoplasm is not excluded and is the diagnosis of exclusion. Correlation with a contrast-enhanced liver protocol CT scan is recommended for further evaluation. 4. Biliary sludge. There are no shadowing gallstones, and no sonographic evidence of acute cholecystitis. ACT 112: Positive. There are findings on this exam that require communication between the performing entity and the patient following Patient Test Result Information Act ([place] Act 112) guidelines. Electronically signed by: Noé Madden M.D. 01/05/2022 7:22 AM Medications Administered Current Inpatient Medications Aspirin (Aspirin 81 Mg Ectab) 81 mg PO QAM COUNTS INCLUDE 234 BEDS AT THE [facility] Stop: 02/04/22 08:59 Atorvastatin Calcium (Atorvastatin 40 Mg Tab) 40 mg PO QAM COUNTS INCLUDE 234 BEDS AT THE [facility] Stop: 02/04/22 08:59 Metoprolol Tartrate (Metoprolol Tartrate 25 Mg Tab) 25 mg PO BID COUNTS INCLUDE 234 BEDS AT THE [facility] Stop: 02/04/22 08:59 Miscellaneous (Icu Protocol For Hyperglycemia) 1 each N/A PRN PRN; Protocol PRN Reason: Hyperglycemia Protocol Stop: 01/07/22 05:36 Nitroglycerin (Nitroglycerin Sl 0.4 Mg/Tab Tab) 0.4 mg SL PRN PRN PRN Reason: Chest Pain Stop: 02/04/22 04:12 Ticagrelor (Ticagrelor 90 Mg Tab) 90 mg PO BID COUNTS INCLUDE 234 BEDS AT THE [facility] Stop: 02/04/22 20:59 Resident Activity Tracking Resident Involvement: Resident Care Provided Care Provided: Adult [facility]
--- NOTE | 2022-01-05 08:04 | Electrocardiogram Report ---
Test Reason : Blood Pressure : / mmHG Vent. Rate : 076 BPM Atrial Rate : 076 BPM P-R Int : 162 ms QRS Dur : 092 ms QT Int : 398 ms P-R-T Axes : 061 025 019 degrees QTc Int : 447 ms Poor data quality, interpretation may be adversely affected Normal sinus rhythm Recent Septal infarct (cited on or before 05-JAN-2022) Abnormal ECG When compared with ECG of 05-JAN-2022 02:26, Serial changes of evolving Septal infarct Present Confirmed by Jack De La Vega ([id number]) on 01/05/2022 8:03:44 AM Referred By: REFERRED SELF Confirmed By:Jack De La Vega
--- NOTE | 2022-01-05 08:45 | Electrocardiogram Report ---
Test Reason : Blood Pressure : / mmHG Vent. Rate : 064 BPM Atrial Rate : 064 BPM P-R Int : 164 ms QRS Dur : 096 ms QT Int : 418 ms P-R-T Axes : 051 -30 -04 degrees QTc Int : 431 ms Normal sinus rhythm ST elevation in Septal leads ST depression in Inferior leads (reciprocal change) Acute Septal infarct Abnormal ECG When compared with ECG of 18-DEC-2015 14:17, Incomplete right bundle branch block is no longer Present ST elevation in Septal leads now present ST depression in Inferior leads now present Confirmed by Jack De La Vega ([id number]) on 01/05/2022 8:45:00 AM Referred By: REFERRED SELF Confirmed By:Jack De La Vega
[2022-01-05] MEDS: ATORVASTATIN 40 MG TAB PO SCH (08:48)
[2022-01-05] MEDS: ASPIRIN 81 MG ECTAB PO SCH (08:48)
--- NOTE | 2022-01-05 08:58 | Electrocardiogram Report ---
Test Reason : Blood Pressure : / mmHG Vent. Rate : 068 BPM Atrial Rate : 068 BPM P-R Int : 156 ms QRS Dur : 094 ms QT Int : 400 ms P-R-T Axes : 055 -24 -17 degrees QTc Int : 425 ms Normal sinus rhythm Acute Septal infarct ST depression in Inferior leads Abnormal ECG When compared with ECG of 05-JAN-2022 00:39, ST elevation in Septal leads more pronounced Confirmed by Jack De La Vega ([id number]) on 01/05/2022 8:58:21 AM Referred By: REFERRED SELF Confirmed By:Jack De La Vega
[2022-01-05] MEDS ORDERED: METOPROLOL TARTRATE 25 MG TAB PO SCH (09:00)
--- NOTE | 2022-01-05 09:10 | XRay Report ---
XR chest 1V portable HISTORY: Atypical chest pain. status post cath COMPARISON: Chest 01/05/2022. FINDINGS: No pneumothorax. No pleural effusions. The heart remains mildly enlarged. No new focal lung consolidations to suggest pneumonia. No evidence for pulmonary edema. There are low lung volumes. IMPRESSION: No acute process. ACT 112: Negative or not required by law. Electronically signed by: Silvestre Louie M.D. 01/05/2022 9:09 AM
[2022-01-05 09:24] LABS: Albumin Globulin Ratio 1.5 (0.9-2); Albumin Level 4.3 gm/dl (3.4-5.0); BUN Creatinine Ratio 29.6 (10-20); Bilirubin,Total 0.6 mg/dl (0.2-1.0); Calcium 9.6 mg/dl (8.5-10.1); Est GFR (African American) 98.1 ml/min; Est GFR (Non-African American) 84.6 ml/min; Globulin 2.8 gm/dl (2.5-4.0); Magnesium 2.1 mg/dl (1.7-2.4); Phosphorus 3.5 mg/dl (2.5-4.9); Total Protein 7.1 gm/dl (6.0-8.3)
[2022-01-05 09:30] LABS: Troponin I High Sensitivity 38718.8 pg/ml (0-20)
[2022-01-05 09:40] LABS: Potassium 4.6 mmol/L (3.5-5.1)
--- NOTE | 2022-01-05 09:41 | Cardiology Consultation ---
Date of Consultation January 05, 2022 Assessment & Plan (1) ST elevation (STEMI) myocardial infarction involving left anterior descending coronary artery: (2) Status post insertion of drug-eluting stent into left anterior descending (LAD) artery: (3) Ischemic cardiomyopathy: (4) NSVT (nonsustained ventricular tachycardia): (5) Dyslipidemia, goal LDL below 70: (6) PFO (patent foramen ovale): (7) Liver mass: Plan Continue dual antiplatelet therapy for minimum of 1 year post percutaneous intervention. Titrate metoprolol to 25 mg 3 times daily. Bedside echocardiogram demonstrated moderate to severe LV systolic dysfunction with LAD territory infarct. Add FANTA inhibitor in a.m. Consider addition of Aldactone prior to discharge. No signs or symptoms of volume overload currently. Continue to monitor telemetry and replace electrolytes as indicated. History of Present Illness Reason for Consultation: Anterior STEMI s/p PCI Requesting Physician: Dr. Malin Attending Physician: Jatin Malin MD History of Present Illness 56-year-old patient with history of patent foramen ovale and TIA in 2012 presenting to the emergency department with epigastric "bloating" radiating to his chest. Symptoms present for several days. Also noting left shoulder discomfort radiating to his left arm. Initial ECG in ER without ST elevation. Repeat ECG performed at 2:[address] elevation. He was taken urgently to the cardiac catheterization lab overnight. Angiogram personally reviewed demonstrating 100% proximal LAD occlusion. A stent was implanted without complication. The first diagonal branch vessel was jailed with a resultant 80% ostial stenosis. Patient feeling well this AM. No recurrent chest discomfort or epigastric burning. No orthopnea, PND, or lower extremity edema. Denies palpitations, lightheadedness, or dizziness. Review of bedside echocardiogram demonstrates moderate to severe LV systolic dysfunction with ejection fraction of 35 to 40%. There is evidence of LAD territory infarction. No significant valvular pathology. Telemetry reveals sinus rhythm with occasional PVCs, couplets, rare 3-6 beat salvos of nonsustained ventricular tachycardia. Allergies Allergy/AdvReac Type Severity Reaction Status Date / Time No Known Allergies Allergy Unverified 12/18/15 14:52 Home Medications Medication Instructions Recorded Confirmed Type Clobetasol Propionate 0.05% 1 applic EXT PRN ALLERGIC REACTION 03/15/13 History (Temovate 0.05%) ##0 TACROLIMUS (TOPICAL) (PROTOPIC) 1 applic topical ALLERGIC REACTION 03/15/13 History ##0 ASPIRIN (ASPIRIN EC) 81 mg PO DAILY ##30 03/16/13 Rx Multivitamin 1 tab PO DAILY #0 tabs 12/18/15 History VITAMIN E (VITAMIN E/D-ALPHA) 1 cap PO DAILY ##0 12/18/15 History Patient History Medical History (Updated 01/05/22 @ 12:36 by Felipe Bradford DO) No pertinent past medical history Surgical History No pertinent past surgical history Social History Smoking Status: Never smoker Hx Alcohol Use: No Hx Substance Use: No Preferred Language: Frisian Communication Ability: Effective Transmission Superintendent Required: No Beliefs That Will Affect Care: None Current Living Situation: Spouse Feels Safe at Home: Yes Safety Concerns: Feels Safe At This Time Assistive Devices: None Review of Systems Review of Systems: All systems reviewed & are unremarkable except as noted in Subjective Physical Exam Constitutional: well nourished; no acute distress Respiratory: no respiratory distress, no labored breathing and no retractions Auscultation: no crackles, no rales, no rhonchi and no wheezes Cardiovascular: Rate/Rhythm: regular rate and regular rhythm Heart Sounds: normal S1 and normal S2; no murmur Vessels: no JVD Extremities: no edema Gastrointestinal (Abdomen): Inspection/Auscultation: abdomen normal to inspection and normal bowel sounds; abdomen not distended Percussion/Palpatio n: abdomen soft; abdomen nontender, no guarding and abdomen not rigid Neurologic: CN's II-XI intact bilaterally and moves all extremities; no focal motor deficits Psychiatric: A+Ox3, euthymic affect Results & Data ([facility]) Vital Signs (Past 12 Hours) Vital Signs Temp Pulse Pulse Resp BP BP Pulse Ox 01/05/22 08:15 91 H 26 H 94 01/05/22 08:15 129/93 01/05/22 08:00 88 28 H 94 01/05/22 08:00 135/94 01/05/22 07:45 82 19 94 01/05/22 07:45 130/98 01/05/22 07:30 117/77 01/05/22 07:30 74 20 93 01/05/22 07:15 114/81 01/05/22 07:15 75 21 93 01/05/22 07:00 75 20 90 01/05/22 07:00 109/83 01/05/22 06:59 76 18 109/83 93 01/05/22 06:30 82 20 124/76 93 01/05/22 06:15 81 20 97 01/05/22 06:00 75 16 117/79 96 01/05/22 05:59 73 17 112/73 94 01/05/22 05:45 75 20 93 01/05/22 05:45 118/79 01/05/22 05:30 82 18 93 01/05/22 05:30 112/85 01/05/22 05:20 73 18 94 01/05/22 05:38 01/05/22 05:29 85 23 112/85 97 01/05/22 04:47 01/05/22 04:59 76 15 120/78 96 01/05/22 04:44 76 16 122/91 96 01/05/22 04:30 36.6 C 83 20 140/89 94 01/05/22 03:00 63 21 95/67 L 96 01/05/22 02:51 68 17 108/73 94 01/05/22 02:30 77 19 98 01/05/22 02:22 127/94 01/05/22 02:23 99 01/05/22 02:21 73 20 127/94 99 01/05/22 01:30 66 16 144/98 H 98 01/05/22 00:35 36.1 C L 66 18 110/76 96 Pulse Ox O2 Del Method O2 Del Method 01/05/22 08:15 01/05/22 08:15 01/05/22 08:00 01/05/22 08:00 01/05/22 07:45 01/05/22 07:45 01/05/22 07:30 01/05/22 07:30 01/05/22 07:15 01/05/22 07:15 01/05/22 07:00 01/05/22 07:00 01/05/22 06:59 Room Air 01/05/22 06:30 Room Air 01/05/22 06:15 Room Air 01/05/22 06:00 Room Air 01/05/22 05:59 Room Air 01/05/22 05:45 01/05/22 05:45 01/05/22 05:30 01/05/22 05:30 01/05/22 05:20 01/05/22 05:38 96 Room Air 01/05/22 05:29 Room Air 01/05/22 04:47 95 Room Air 01/05/22 04:59 Room Air 01/05/22 04:44 Room Air 01/05/22 04:30 Room Air 01/05/22 03:00 Room Air 01/05/22 02:51 Room Air 01/05/22 02:30 Room Air 01/05/22 02:22 01/05/22 02:23 Room Air 01/05/22 02:21 Room Air 01/05/22 01:30 Room Air 01/05/22 00:35 Room Air
--- NOTE | 2022-01-05 09:43 | XRay Report ---
XR chest 1V portable HISTORY: Atypical Chest Pain COMPARISON: Chest 12/18/2015. FINDINGS: No pneumothorax. No pleural effusions. The cardiac silhouette remains mildly enlarged. Ther e is mild central pulmonary vascular congestion without overt edema. Left basilar linear densities fa vor subsegmental atelectasis. Otherwise, no focal lung consolidations to suggest pneumonia. IMPRESSION: Cardiomegaly with mild central pulmonary vascular congestion without overt edema. ACT 112: Negative or not required by law. Electronically signed by: Silvestre Louie M.D. 01/05/2022 9:42 AM
[2022-01-05] MEDS: METOPROLOL TARTRATE 25 MG TAB PO SCH ×2 (13:27→20:48)
--- NOTE | 2022-01-05 13:39 | Billing Data ---
Date of Service January 05, 2022 [place] [address] Initial Inpt Care Lvl 3 Patient Type New
--- NOTE | 2022-01-05 15:19 | Hospitalist Progress Note ---
Date of Service January 05, 2022 Assessment & Plan (1) ST elevation (STEMI) myocardial infarction involving left anterior descending coronary artery: Plan: Patient is a 56 yr male presents with chest pain, found to be on ST elevated myocardial infarction. STEMI S/P PCI (drug-eluting stent into left anterior descending artery) NSVT Ischemic Cardiomyopathy PFO -ECHO: Significant LAD territory wall motion abnormalities. Moderate to severe left ventricular systolic dysfunction. EF 35 to 40%. No significant valvular disease. -CXR:No acute process. Continue aspirin, Lipitor, metoprolol, Brilinta, lisinopril Appreciate cardiology/Critical Care input Hyperlipidemia: On statin. Liver lesions: -Gall Bladder USD:Hepatomegaly and hepatic steatosis. There are at least 2 pathologically indeterminate hypoechoic liver lesions. The largest is in the left lobe and measures up to 6.3 cm. Although these could represent benign lesions such as hemangiomas, neoplasm is not excluded and is the diagnosis of exclusion. Correlation with a contrast-enhanced liver protocol CT scan is recommended for further evaluation. Biliary sludge. There are no shadowing gallstones, and no sonographic evidence of acute cholecystitis. 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 Right parietotemporal lesion. Thought to be low-grade glioma Needs further eval as outpatient (May need repeat MRI) DVT Px: SCDs for now Code Status Full Code Admission and Anticipated Discharge Date Admission Date: January 05, 2022 Subjective Patient is seen and examined at bedside States feeling anxious and reports nasal congestion this morning Denies any chest pain, shortness of breath, dizziness, nausea, abdominal pain Offers no other complaints Review of Systems Review of Systems: All systems reviewed & are unremarkable except as noted in Subjective Physical Exam Physical Exam: Physical Exam: Vitals signs as noted above General Appearance:Obese, no apparent distress Head: normocephalic, Atraumatic Eyes: normal inspection, EOMI Neck: supple, Trachea midline Respiratory/Chest: Normal breath sounds, CTA, No accessory muscle use Cardiovascular: S1, S2, No murmur Abdomen/GI:Soft, Non tender, Bowel sounds present Extremities/Musculoskeletal:normal inspection, no edema Neurologic/Psych:AAOX3, grossly no focal neurological deficits Skin: normal color, warm Results & Data Results & Data ([facility]) Vital Signs (Past 12 Hours) Vital Signs Temp Pulse Pulse Resp BP BP Pulse Ox 01/05/22 13:27 36.9 C 01/05/22 13:00 74 22 93 01/05/22 13:00 124/88 01/05/22 12:00 83 19 97 01/05/22 12:00 142/97 H 01/05/22 11:00 83 19 94 01/05/22 11:00 126/91 01/05/22 10:00 87 19 92 01/05/22 10:00 123/88 01/05/22 09:00 37 C 92 H 23 94 01/05/22 09:00 125/84 01/05/22 08:48 95 H 28 H 95 01/05/22 08:48 122/85 01/05/22 08:00 01/05/22 09:39 01/05/22 08:59 01/05/22 07:59 01/05/22 08:15 91 H 26 H 94 01/05/22 08:15 129/93 01/05/22 08:00 88 28 H 94 01/05/22 08:00 135/94 01/05/22 07:45 82 19 94 01/05/22 07:45 130/98 01/05/22 07:30 117/77 01/05/22 07:30 74 20 93 01/05/22 07:15 114/81 01/05/22 07:15 75 21 93 01/05/22 07:00 75 20 90 01/05/22 07:00 109/83 01/05/22 06:59 76 18 109/83 93 01/05/22 06:30 82 20 124/76 93 01/05/22 06:15 81 20 97 01/05/22 06:00 75 16 117/79 96 01/05/22 05:59 73 17 112/73 94 01/05/22 05:45 75 20 93 01/05/22 05:45 118/79 01/05/22 05:30 82 18 93 01/05/22 05:30 112/85 01/05/22 05:20 73 18 94 01/05/22 05:38 01/05/22 05:29 85 23 112/85 97 01/05/22 04:47 01/05/22 04:59 76 15 120/78 96 01/05/22 04:44 76 16 122/91 96 01/05/22 04:30 36.6 C 83 20 140/89 94 Pulse Ox O2 Del Method O2 Del Method 01/05/22 13:27 01/05/22 13:00 01/05/22 13:00 01/05/22 12:00 01/05/22 12:00 01/05/22 11:00 01/05/22 11:00 01/05/22 10:00 01/05/22 10:00 01/05/22 09:00 01/05/22 09:00 01/05/22 08:48 01/05/22 08:48 01/05/22 08:00 Room Air 01/05/22 09:39 Room Air 01/05/22 08:59 Room Air 01/05/22 07:59 Room Air 01/05/22 08:15 01/05/22 08:15 01/05/22 08:00 01/05/22 08:00 01/05/22 07:45 01/05/22 07:45 01/05/22 07:30 01/05/22 07:30 01/05/22 07:15 01/05/22 07:15 01/05/22 07:00 01/05/22 07:00 01/05/22 06:59 Room Air 01/05/22 06:30 Room Air 01/05/22 06:15 Room Air 01/05/22 06:00 Room Air 01/05/22 05:59 Room Air 01/05/22 05:45 01/05/22 05:45 01/05/22 05:30 01/05/22 05:30 01/05/22 05:20 01/05/22 05:38 96 Room Air 01/05/22 05:29 Room Air 01/05/22 04:47 95 Room Air 01/05/22 04:59 Room Air 01/05/22 04:44 Room Air 01/05/22 04:30 Room Air Laboratory Results Short CBC 01/05/22 01/05/22 Range/Units 00:50 04:49 WBC 8.61 10.13 (4.8-10.8) K/ul Hgb 15.0 14.8 (14.0-18.0) g/dl Hct 44.8 44.6 (40.1-51.0) % Plt Count 177 164 (130-400) K/uL BMP 01/05/22 01/05/22 00:50 08:25 Sodium 137 135 L Potassium 4.1 4.6 Chloride 102 102 Carbon Dioxide 28 25 BUN 35 H 29 H Creatinine 1.23 0.98 Glucose 159 H 152 H Calcium 9.4 9.6 Liver Function 01/05/22 01/05/22 Range/Units 00:50 08:25 Total Bilirubin 0.4 0.6 (0.2-1.0) mg/dl AST 31 135 H (13-39) U/L ALT 55 H 68 H (7-52) U/L Alkaline Phosphatase 72 70 (34-104) U/L Albumin 4.2 4.3 (3.4-5.0) gm/dl
[2022-01-05] MEDS: LORazepam 0.5 MG TAB PO PRN (15:35)
[2022-01-05] MEDS ORDERED: CALCIUM CARBONATE 500 MG CHEWABLE TAB PO PRN (19:22)
[2022-01-05] MEDS: TICAGRELOR 90 MG TAB PO SCH (20:49)
[2022-01-06] MEDS: LORazepam 0.5 MG TAB PO PRN (02:51)
[2022-01-06 04:32] LABS: Basophils # (auto) 0.03 K/uL (0-0.2); Basophils % (auto) 0.3 %; Eosinophils # (auto) 0.06 K/uL (0-0.50); Eosinophils % (auto) 0.5 %; Hematocrit (blood only) 46.4 % (40.1-51.0); Immature Granulocytes # (auto) 0.07 K/uL (0.00-0.02); Immature Granulocytes % (auto) 0.6 %; Lymphocytes # (auto) 2.09 K/uL (1.2-3.4); Lymphocytes % (auto) 18.9 %; Mean Corpuscular Hemoglobin 30.3 pg (25.0-34.0); Mean Corpuscular Hgb Conc 34.5 g/dL (32.0-36.0); Mean Corpuscular Volume 87.9 fL (80.0-100.0); Mean Platelet Volume 10.8 fL (9.4-12.4); Monocytes # (auto) 1.26 K/uL (0.24-0.82); Monocytes % (auto) 11.4 %; Neutrophils # (auto) 7.56 K/uL (1.4-6.5); Neutrophils % (auto) 68.3 %; Platelet Count 186 K/uL (130-400); RDW Coefficient of Variation 12.5 % (11.5-14.5); Red Blood Count 5.28 M/uL (4.63-6.08); White Blood Count 11.07 K/ul (4.8-10.8)
[2022-01-06 04:53] LABS: BUN Creatinine Ratio 18.1 (10-20); Calcium 9.6 mg/dl (8.5-10.1); Creatinine Clr Calc Pharmacy 104.3 ml/min; Est GFR (African American) 103.2 ml/min; Magnesium 2.2 mg/dl (1.7-2.4); Phosphorus 3.5 mg/dl (2.5-4.9)
[2022-01-06 05:28] LABS: Troponin I High Sensitivity 21952.1 pg/ml (0-20)
[2022-01-06] MEDS: METOPROLOL TARTRATE 25 MG TAB PO SCH ×3 (06:35→20:24)
--- NOTE | 2022-01-06 08:15 | Critical Care Progress Note ---
Date of Service January 06, 2022 Assessment & Plan (1) ST elevation (STEMI) myocardial infarction involving left anterior descending coronary artery: Plan: ICU Assessment and Plans Reason Critically Ill: 56-year-old male with past medical history significant for hyperlipidemia, patent foramen ovale, history of low-grade glioma of brain, who presents with chest pain and found to have STEMI, admitted to ICU s/p cardiac cath. Neuro - [facility] ICU: NEGATIVE Sedation: none Analgesia: none Low Grade Glioma -per neurology notes 2014, last MRI 4 years ago -may need additional MRI given liver masses Cardiac - STEMI -cardiology consulted -s/p cardiac cath of mid LAD with 1xdrug eluding stent -started on aspirin 81mg daily -started Brillinta 90mg BID -started metoprolol tartrate 25mg TID -started lisinopril 2.5mg daily -continue atorvastatin 40mg daily -Nitrostat PRN -CXR normal -echo EF 35-40%, mod-sev LV func, sig LAD territory wall motion abn, no sig valve disease -trop 60800 downtrending -continuous classroom monitor HLD -continue atorvastatin 40mg daily -lipid panel wnl Respiratory - No concerns at this time GI - heart healthy diet -lipase normal Liver Mass -gallbladder US: No acute sonographic abnormality is seen in the right upper quadrant. Hepatomegaly and hepatic steatosis. There are at least 2 pathologically indeterminate hypoechoic liver lesions. The largest is in the left lobe and measures up to 6.3 cm. Although these could represent benign lesions such as hemangiomas, neoplasm is not excluded and is the diagnosis of exclusion. Correlation with a contrast-enhanced liver protocol CT scan is recommended for further evaluation. Biliary sludge. There are no shadowing gallstones, and no sonographic evidence of acute cholecystitis. Elevated Liver enzymes -likely 2/2 to recent STEMI -AST 135, ALT 68 -continue to monitor RENAL/LYTES - No significant electrolyte derangement. Replace lytes as needed. BUN 29 - No concerns at this time. ENDO - No concerns at this time. A1c 5.6 HEME - Stable H&H. Will monitor for any drops ID - No concerns for infection at this point. INTEGUMENTARY - Skin clean dry intact LINES/IV ACCESS - PIVs intact. DVT PROPHYLAXIS - ASA, Brillinta -SCDs ordered -if patient hospital stay continues, consider heparin subQ Thank you for allowing us to be part of this patient's care. Please refer to Dr. Castellano's documentation for any further recommendations. Patient is stable for downgrade from the ICU at this time. (2) Coronary artery disease: (3) Atherogenic dyslipidemia: Admission and Anticipated Discharge Date Admission Date: January 05, 2022 Supervising Physician Co-Signing Physician Notes Dr. Leslie was the resident-physician during care of patient. I separately evaluated patient for cotton portions of the history and the exam. I was present during the critical portion of medical decision making, and I discussed the case with the resident. I generally agree with the findings and plan except for any additions/exceptions noted. Patient seen and examined at bedside. No acute distress, no adverse events overnight. Denies any chest pain, no headache, no nausea, no vomiting No dizziness. Fair appetite. Constitutional: No acute distress HEENT: EOMI, PERRLA Respiratory system: Good air entry bilaterally, no wheeze, rhonchi, no crackles CVS: S1-S2 positive, no murmurs or gallops Abdomen: Soft, nontender, nondistended, positive bowel sounds x4 Extremities: +2 pulses bilaterally radialis/ dorsalis pedis, no cyanosis, no edema Neuro: Awake alert oriented x3 Psych: Normal mood and affect G/U: No Castro Plan: In/out: -1.6 L, urine output 2625 Will be started on heparin prophylaxis. 2D echo 01/05/2022: EF 35-40%, moderate to severe LV dysfunction Continue with dual antiplatelet therapy along with statin, beta-zandra and FANTA inhibitor. Patient is hemodynamically stable to be downgraded to medical floor Follow cardiology recommendations Please note the above document was generated using voice recognition software. It may contain grammatical, syntax or spelling errors.Any formal questions or concerns about the content, text or information contained within the body of this dictation should be directly addressed to the provider for clarification. Subjective Patient seen at bedside, calm comfortable cooperative. He states he is eating well, denies any SOB or chest pain, no complaints at this time. Patient understands he will need close followup with cardiology for management of his stent and heart failure. Review of Systems Review of Systems: Negative fever chills Negative headache dizziness Negative chest pain palpitations SOB Negative nausea vomitting diarrhea constipation Negative numbness tingling rash swelling Physical Exam Constitutional: WD/WN, vitals as above Eyes: PERRL, conjunctivae normal, anicteric sclerae ENMT: external ear and nose normal, oropharynx normal Neck: trachea midline, no thyromegaly Respiratory: normal respiratory effort, lungs clear to auscultation Cardiovascular: RRR, no murmur, no edema Chest (Breasts): Chest: normal inspection of chest Gastrointestinal (Abdomen): Inspection/Auscultation: abdomen normal to inspection Percussion/Palpation: abdomen soft; abdomen nontender Skin: no rashes, warm and dry Psychiatric: A+Ox3, euthymic affect Results & Data Results & Data ([facility]) Vital Signs (Past 12 Hours) Vital Signs Pulse Resp BP Pulse Ox O2 Del Method 01/06/22 06:00 62 13 108/72 95 Room Air 01/06/22 05:00 62 14 113/81 92 Room Air 01/06/22 04:00 67 9 L 123/90 93 01/06/22 03:00 62 17 115/86 92 01/06/22 02:00 63 8 L 112/83 94 01/06/22 01:00 69 19 110/79 93 01/06/22 00:00 64 18 114/85 94 01/05/22 23:00 69 14 115/84 93 01/05/22 22:00 63 01/05/22 22:00 66 13 93 01/05/22 22:00 104/74 01/05/22 21:00 68 16 94 01/05/22 21:00 121/80 Laboratory Results 01/06/22 01/06/22 01/05/22 Range/Units 04:07 04:07 14:13 WBC 11.07 H (4.8-10.8) K/ul RBC 5.28 (4.63-6.08) M/uL Hgb 16.0 (14.0-18.0) g/dl Hct 46.4 (40.1-51.0) % MCV 87.9 (80.0-100.0) fL MCH 30.3 (25.0-34.0) pg MCHC 34.5 (32.0-36.0) g/dL RDW Std Deviation 40.0 (36.4-46.3) fL RDW Coeff of Yael 12.5 (11.5-14.5) % Plt Count 186 (130-400) K/uL MPV 10.8 (9.4-12.4) fL Immature Gran % (Auto) 0.6 % Neut % (Auto) 68.3 % Lymph % (Auto) 18.9 % [place] % (Auto) 11.4 % Eos % (Auto) 0.5 % Baso % (Auto) 0.3 % Neut # (Auto) 7.56 H (1.4-6.5) K/uL Lymph # (Auto) 2.09 (1.2-3.4) K/uL [place] # (Auto) 1.26 H (0.24-0.82) K/uL Eos # (Auto) 0.06 (0-0.50) K/uL Baso # (Auto) 0.03 (0-0.2) K/uL Immature Gran # (Auto) 0.07 H (0.00-0.02) K/uL Activ Coag Time Kaolin (94-140) SECONDS Sodium 134 L (136-145) mmol/L Potassium 4.0 (3.5-5.1) mmol/L Chloride 102 (98-107) mmol/L Carbon Dioxide 24 (21-32) mmol/L Anion Gap 8 (3-11) BUN 17 (6-23) mg/dl Creatinine 0.94 (0.6-1.4) mg/dl Est Cr Clr Drug Dosing 104.3 ml/min Est GFR ( Amer) 103.2 ml/min Est GFR (Non-Af Amer) 89.0 ml/min BUN/Creatinine Ratio 18.1 (10-20) Glucose 114 H (70-99(Fasting)) mg/dl Calcium 9.6 (8.5-10.1) mg/dl Phosphorus 3.5 (2.5-4.9) mg/dl Magnesium 2.2 (1.7-2.4) mg/dl Total Bilirubin (0.2-1.0) mg/dl AST (13-39) U/L ALT (7-52) U/L Alkaline Phosphatase (34-104) U/L Troponin I High Sens 60333.1 H* D 26427.4 H* (0-20) pg/ml Total Protein (6.0-8.3) gm/dl Albumin (3.4-5.0) gm/dl Globulin (2.5-4.0) gm/dl Albumin/Globulin Ratio (0.9-2) Nasal Screen MRSA (PCR) (Negative) 01/05/22 01/05/22 01/05/22 Range/Units 09:00 08:25 03:44 WBC (4.8-10.8) K/ul RBC (4.63-6.08) M/uL Hgb (14.0-18.0) g/dl Hct (40.1-51.0) % MCV (80.0-100.0) fL MCH (25.0-34.0) pg MCHC (32.0-36.0) g/dL RDW Std Deviation (36.4-46.3) fL RDW Coeff of Yael (11.5-14.5) % Plt Count (130-400) K/uL MPV (9.4-12.4) fL Immature Gran % (Auto) % Neut % (Auto) % Lymph % (Auto) % [place] % (Auto) % Eos % (Auto) % Baso % (Auto) % Neut # (Auto) (1.4-6.5) K/uL Lymph # (Auto) (1.2-3.4) K/uL [place] # (Auto) (0.24-0.82) K/uL Eos # (Auto) (0-0.50) K/uL Baso # (Auto) (0-0.2) K/uL Immature Gran # (Auto) (0.00-0.02) K/uL Activ Coag Time Kaolin 300 H (94-140) SECONDS Sodium 135 L (136-145) mmol/L Potassium 4.6 (3.5-5.1) mmol/L Chloride 102 (98-107) mmol/L Carbon Dioxide 25 (21-32) mmol/L Anion Gap 8 (3-11) BUN 29 H (6-23) mg/dl Creatinine 0.98 (0.6-1.4) mg/dl Est Cr Clr Drug Dosing 100.0 ml/min Est GFR ( Amer) 98.1 ml/min Est GFR (Non-Af Amer) 84.6 ml/min BUN/Creatinine Ratio 29.6 H (10-20) Glucose 152 H (70-99(Fasting)) mg/dl Calcium 9.6 (8.5-10.1) mg/dl Phosphorus 3.5 (2.5-4.9) mg/dl Magnesium 2.1 (1.7-2.4) mg/dl Total Bilirubin 0.6 (0.2-1.0) mg/dl AST 135 H (13-39) U/L ALT 68 H (7-52) U/L Alkaline Phosphatase 70 (34-104) U/L Troponin I High Sens 28831.8 H* D (0-20) pg/ml Total Protein 7.1 (6.0-8.3) gm/dl Albumin 4.3 (3.4-5.0) gm/dl Globulin 2.8 (2.5-4.0) gm/dl Albumin/Globulin Ratio 1.5 (0.9-2) Nasal Screen MRSA (PCR) Negative (Negative) Medications Administered Current Inpatient Medications Aspirin (Aspirin 81 Mg Ectab) 81 mg PO [facility] Stop: 02/04/22 08:59 Last Admin: 01/05/22 08:48 Dose: 81 mg Atorvastatin Calcium (Atorvastatin 40 Mg Tab) [facility] [place] Stop: 02/04/22 08:59 Last Admin: 01/05/22 08:48 Dose: 40 mg Calcium Carbonate (Calcium Carbonate 500 Mg Chewable Tab) 500 mg PO Q6H PRN PRN Reason: Heartburn Stop: 02/04/22 19:21 Last Admin: 01/05/22 20:49 Dose: 500 mg Lisinopril (Lisinopril 2.5 Mg Tab) 2.5 mg PO [facility] Stop: 02/05/22 08:59 Lorazepam (Lorazepam 0.5 Mg Tab) 0.5 mg PO BID PRN PRN Reason: Anxiety Stop: 02/04/22 14:37 Last Admin: 01/06/22 02:51 Dose: 0.5 mg Metoprolol Tartrate (Metoprolol Tartrate 25 Mg Tab) 25 mg PO Q8 [facility] Stop: 02/04/22 13:59 Last Admin: 01/06/22 06:35 Dose: 25 mg Miscellaneous (Icu Protocol For Hyperglycemia) 1 each N/A PRN PRN; Protocol PRN Reason: Hyperglycemia Protocol Stop: 01/07/22 05:36 Nitroglycerin (Nitroglycerin Sl 0.4 Mg/Tab Tab) 0.4 mg SL PRN PRN PRN Reason: Chest Pain Stop: 02/04/22 04:12 Ticagrelor (Ticagrelor 90 Mg Tab) 90 mg PO BID [facility] Stop: 02/04/22 20:59 Last Admin: 01/05/22 20:49 Dose: 90 mg Resident Activity Tracking Resident Involvement: Resident Care Provided Care Provided: Adult Hospital Medicine
[2022-01-06] MEDS ORDERED: lisinopril 2.5 MG TAB PO SCH (09:00)
[2022-01-06] MEDS: ASPIRIN 81 MG ECTAB PO SCH (09:35)
[2022-01-06] MEDS: ATORVASTATIN 40 MG TAB PO SCH (09:35)
[2022-01-06] MEDS: TICAGRELOR 90 MG TAB PO SCH ×2 (09:35→20:23)
--- NOTE | 2022-01-06 10:23 | Billing Data ---
Date of Service January 06, 2022 Coding Level of Care Code 52364 Subseq Hosp Care Lvl 2
--- NOTE | 2022-01-06 10:55 | Cardiology Progress Note ---
Date of Service January 06, 2022 Assessment & Plan (1) ST elevation (STEMI) myocardial infarction involving left anterior descending coronary artery: (2) Status post insertion of drug-eluting stent into left anterior descending (LAD) artery: (3) Ischemic cardiomyopathy: (4) NSVT (nonsustained ventricular tachycardia): (5) Dyslipidemia, goal LDL below 70: (6) PFO (patent foramen ovale): (7) Liver mass: Plan Continue dual antiplatelet therapy for minimum of 1 year post percutaneous intervention. Continue metoprolol tartrate 25 mg 3 times daily. Patient may be transition to succinate formulation at discharge. Titrate lisinopril to 5 mg daily. Add low-dose Aldactone 12.5 mg daily. Repeat basic metabolic panel in a.m. No signs or symptoms of volume overload currently. Continue to monitor telemetry and replace electrolytes as indicated. Admission and Anticipated Discharge Date Admission Date: January 05, 2022 Subjective Patient seen and examined at the bedside. Denies chest pain or shortness of breath at rest. No orthopnea, PND, or lower extremity edema. Telemetry reveals sinus rhythm with occasional PVCs and isolated 4 beat run of nonsustained ventricular tachycardia. Review of Systems Review of Systems: All systems reviewed & are unremarkable except as noted in Subjective Physical Exam Constitutional: well nourished; no acute distress Respiratory: no respiratory distress, no labored breathing and no retractions Auscultation: no crackles, no rales, no rhonchi and no wheezes Cardiovascular: Rate/Rhythm: regular rate and regular rhythm Heart Sounds: normal S1 and normal S2; no murmur Vessels: no JVD Extremities: no edema Gastrointestinal (Abdomen): Inspection/Auscultation: abdomen normal to inspection and normal bowel sounds; abdomen not distended Percussion/Palpation: abdomen soft; abdomen nontender, no guarding and abdomen not rigid Neurologic: CN's II-XI intact bilaterally and moves all extremities; no focal motor deficits Psychiatric: A+Ox3, euthymic affect Results & Data ([facility]) Vital Signs (Past 12 Hours) Vital Signs Pulse Resp BP Pulse Ox O2 Del Method 01/06/22 08:00 72 01/06/22 06:00 62 13 108/72 95 Room Air 01/06/22 05:00 62 14 113/81 92 Room Air 01/06/22 04:00 67 9 L 123/90 93 01/06/22 03:00 62 17 115/86 92 01/06/22 02:00 63 8 L 112/83 94 01/06/22 01:00 69 19 110/79 93 01/06/22 00:00 64 18 114/85 94 01/05/22 23:00 69 14 115/84 93
[2022-01-06] MEDS: SPIRONOLACTONE 12.5 MG TAB PO SCH (12:11)
[2022-01-06] MEDS: HEPARIN SOD 5,000 UNIT/0.5 ML VIAL SQ SCH ×2 (15:15→20:24)
--- NOTE | 2022-01-06 17:14 | Hospitalist Progress Note ---
Date of Service January 06, 2022 Assessment & Plan (1) ST elevation (STEMI) myocardial infarction involving left anterior descending coronary artery: Plan: Patient is a 56 yr male presents with chest pain, found to be on ST elevated myocardial infarction. STEMI S/P PCI (drug-eluting stent into left anterior descending artery) NSVT Ischemic Cardiomyopathy PFO -ECHO: Significant LAD territory wall motion abnormalities. Moderate to severe left ventricular systolic dysfunction. EF 35 to 40%. No significant valvular disease. -CXR:No acute process. Continue aspirin, Lipitor, metoprolol, Brilinta, lisinopril Appreciate cardiology/Critical Care input Added Aldactone 12.5 mg daily Needs follow-up with cardiology upon discharge Increased Toprol to 5 mg daily Hyperlipidemia: On statin. Liver lesions: -Gall Bladder USD:Hepatomegaly and hepatic steatosis. There are at least 2 pathologically indeterminate hypoechoic liver lesions. The largest is in the left lobe and measures up to 6.3 cm. Although these could represent benign lesions such as hemangiomas, neoplasm is not excluded and is the diagnosis of exclusion. Correlation with a contrast-enhanced liver protocol CT scan is recommended for further evaluation. Biliary sludge. There are no shadowing gallstones, and no sonographic evidence of acute cholecystitis. 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 Right parietotemporal lesion. Thought to be low-grade glioma Needs further eval as outpatient (May need repeat MRI) DVT Px: SCDs for now Code Status Full Code Admission and Anticipated Discharge Date Admission Date: January 05, 2022 Subjective Patient is seen and examined at bedside States feeling better today Offers no complaints Denies any chest pain, shortness of breath, dizziness, nausea, abdominal pain Review of Systems Review of Systems: All systems reviewed & are unremarkable except as noted in Subjective Physical Exam Physical Exam: Physical Exam: Vitals signs as noted above General Appearance:Obese, no apparent distress Head: normocephalic, Atraumatic Eyes: normal inspection, EOMI Neck: supple, Trachea midline Respiratory/Chest: Normal breath sounds, CTA, No accessory muscle use Cardiovascular: S1, S2, No murmur Abdomen/GI:Soft, Non tender, Bowel sounds present Extremities/Musculoskeletal:normal inspection, no edema Neurologic/Psych:AAOX3, grossly no focal neurological deficits Skin: normal color, warm Results & Data Results & Data ([facility]) Vital Signs (Past 12 Hours) Vital Signs Temp Pulse Pulse Resp BP BP Pulse Ox 01/06/22 16:03 36.7 C 98 H 16 120/74 98 01/06/22 15:14 69 112/74 94 01/06/22 11:45 85 104/75 01/06/22 11:44 80 100/71 01/06/22 11:34 70 15 124/78 96 01/06/22 07:02 72 13 106/79 95 01/06/22 07:00 36.8 C 01/06/22 08:00 72 01/06/22 06:00 62 13 108/72 95 O2 Del Method 01/06/22 16:03 Room Air 01/06/22 15:14 Room Air 01/06/22 11:45 01/06/22 11:44 01/06/22 11:34 01/06/22 07:02 Room Air 01/06/22 07:00 01/06/22 08:00 01/06/22 06:00 Room Air Laboratory Results Short CBC 01/06/22 Range/Units 04:07 WBC 11.07 H (4.8-10.8) K/ul Hgb 16.0 (14.0-18.0) g/dl Hct 46.4 (40.1-51.0) % Plt Count 186 (130-400) K/uL BMP 01/06/22 04:07 Sodium 134 L Potassium 4.0 Chloride 102 Carbon Dioxide 24 BUN 17 Creatinine 0.94 Glucose 114 H Calcium 9.6
[2022-01-07 04:43] LABS: Basophils # (auto) 0.05 K/uL (0-0.2); Basophils % (auto) 0.5 %; Eosinophils # (auto) 0.11 K/uL (0-0.50); Eosinophils % (auto) 1.1 %; Hematocrit (blood only) 47.9 % (40.1-51.0); Hemoglobin 16.5 g/dl (14.0-18.0); Immature Granulocytes # (auto) 0.13 K/uL (0.00-0.02); Immature Granulocytes % (auto) 1.4 %; Lymphocytes # (auto) 2.75 K/uL (1.2-3.4); Lymphocytes % (auto) 28.7 %; Mean Corpuscular Hemoglobin 30.4 pg (25.0-34.0); Mean Corpuscular Hgb Conc 34.4 g/dL (32.0-36.0); Mean Corpuscular Volume 88.2 fL (80.0-100.0); Mean Platelet Volume 10.8 fL (9.4-12.4); Monocytes # (auto) 1.17 K/uL (0.24-0.82); Monocytes % (auto) 12.2 %; Neutrophils # (auto) 5.37 K/uL (1.4-6.5); Neutrophils % (auto) 56.1 %; Platelet Count 177 K/uL (130-400); RDW Coefficient of Variation 12.7 % (11.5-14.5); RDW Standard Deviation 41.1 fL (36.4-46.3); Red Blood Count 5.43 M/uL (4.63-6.08); White Blood Count 9.58 K/ul (4.8-10.8)
[2022-01-07 05:13] LABS: BUN Creatinine Ratio 22.9 (10-20); Calcium 9.2 mg/dl (8.5-10.1); Creatinine Clr Calc Pharmacy 89.1 ml/min; Est GFR (African American) 86.3 ml/min; Est GFR (Non-African American) 74.4 ml/min; Magnesium 2.3 mg/dl (1.7-2.4)
[2022-01-07] MEDS: HEPARIN SOD 5,000 UNIT/0.5 ML VIAL SQ SCH (05:37)
[2022-01-07] MEDS: METOPROLOL TARTRATE 25 MG TAB PO SCH (05:37)
[2022-01-07] MEDS: SPIRONOLACTONE 12.5 MG TAB PO SCH (08:46)
[2022-01-07] MEDS: ASPIRIN 81 MG ECTAB PO SCH (08:46)
[2022-01-07] MEDS: TICAGRELOR 90 MG TAB PO SCH (08:46)
[2022-01-07] MEDS: ATORVASTATIN 40 MG TAB PO SCH (08:46)
[2022-01-07] MEDS ORDERED: lisinopril 5 MG TAB PO SCH (09:00)
--- NOTE | 2022-01-07 11:10 | Cardiology Progress Note ---
Date of Service January 07, 2022 Assessment & Plan (1) ST elevation (STEMI) myocardial infarction involving left anterior descending coronary artery: Plan: Single-vessel disease with good result (2) Status post insertion of drug-eluting stent into left anterior descending (LAD) artery: (3) Ischemic cardiomyopathy: (4) NSVT (nonsustained ventricular tachycardia): Plan: No further recurrence since initial day of admission, no arrhythmias. Patient on guideline directed optimal medical regimen (5) Dyslipidemia, goal LDL below 70: (6) PFO (patent foramen ovale): (7) Liver mass: Plan Plan Continue dual antiplatelet therapy for minimum of 1 year post percutaneous intervention. Continue metoprolol succinate 25 mg bid. Titrate lisinopril to 5 mg daily. Add low-dose Aldactone 12.5 mg daily. Needs cardiology appointment 1 week Cardiac rehab as outpatient Had long discussion with patient regarding medications and indications. Patient to promptly report any changes or symptoms Admission and Anticipated Discharge Date Admission Date: January 05, 2022 Subjective Patient was seen and examined, chart, medications, telemetry reviewed. Patient feels well and is ambulatory in the hallway. No chest pains or discomfort. Right radial access site healing well. Telemetry reveals no arrhythmias or even significant ectopy No edema. Review of Systems Review of Systems: All systems reviewed & are unremarkable except as noted in Subjective Physical Exam Constitutional: WD/WN, vitals as above Eyes: PERRL, conjunctivae normal, anicteric sclerae ENMT: external ear and nose normal, oropharynx normal Neck: trachea midline, no thyromegaly Respiratory: normal respiratory effort, lungs clear to auscultation Cardiovascular: Rate/Rhythm: regular rate and regular rhythm Heart Sounds: normal S1 and normal S2; no gallop and no murmur Palpation: normal PMI Vessels: normal carotid upstroke and radial pulses present; no JVD and no carotid bruit Extremities: no edema Gastrointestinal (Abdomen): normal bowel sounds, soft, nontender, no hepatosplenomegaly Musculoskeletal: no cyanosis or clubbing, extremities motor strength 5/5 Skin: no rashes, warm and dry Neurologic: PERRL, EOMI, accommodation nl, no face palsy, no dysarthria Psychiatric: A+Ox3, euthymic affect Results & Data ([place]) Vital Signs (Past 12 Hours) Vital Signs Temp Pulse Pulse Resp BP Pulse Ox O2 Del Method 01/07/22 08:00 69 01/07/22 07:38 36.8 C 64 18 117/77 95 Room Air 01/07/22 04:00 37.1 C 70 18 121/79 96 Room Air Laboratory Results Laboratory Results - last 24 hr 01/07/22 01/07/22 04:28 04:28 WBC 9.58 RBC 5.43 Hgb 16.5 Hct 47.9 MCV 88.2 MCH 30.4 MCHC 34.4 RDW Std Deviation 41.1 RDW Coeff of Yael 12.7 Plt Count 177 MPV 10.8 Immature Gran % (Auto) 1.4 Neut % (Auto) 56.1 Lymph % (Auto) 28.7 Baca % (Auto) 12.2 Eos % (Auto) 1.1 Baso % (Auto) 0.5 Neut # (Auto) 5.37 Lymph # (Auto) 2.75 [place] # (Auto) 1.17 H Eos # (Auto) 0.11 Baso # (Auto) 0.05 Immature Gran # (Auto) 0.13 H Sodium 135 L Potassium 4.0 Chloride 103 Carbon Dioxide 24 Anion Gap 8 BUN 25 H Creatinine 1.09 Est Cr Clr Drug Dosing 89.1 Est GFR ( Amer) 86.3 Est GFR (Non-Af Amer) 74.4 BUN/Creatinine Ratio 22.9 H Glucose 96 Calcium 9.2 Phosphorus 4.0 Magnesium 2.3
--- NOTE | 2022-01-07 11:15 | Hospitalist Progress Note ---
Date of Service January 07, 2022 Assessment & Plan (1) ST elevation (STEMI) myocardial infarction involving left anterior descending coronary artery: Plan: Patient is a 56 yr male presents with chest pain, found to be on ST elevated myocardial infarction. STEMI S/P PCI (drug-eluting stent into left anterior descending artery) NSVT Ischemic Cardiomyopathy PFO -ECHO: Significant LAD territory wall motion abnormalities. Moderate to severe left ventricular systolic dysfunction. EF 35 to 40%. No significant valvular disease. -CXR:No acute process. Continue aspirin, Lipitor, metoprolol, Brilinta, lisinopril Appreciate cardiology/Critical Care input Added Aldactone 12.5 mg daily Needs follow-up with cardiology upon discharge Hyperlipidemia: On statin. Liver lesions: -Gall Bladder USD:Hepatomegaly and hepatic steatosis. There are at least 2 pathologically indeterminate hypoechoic liver lesions. The largest is in the left lobe and measures up to 6.3 cm. Although these could represent benign lesions such as hemangiomas, neoplasm is not excluded and is the diagnosis of exclusion. Correlation with a contrast-enhanced liver protocol CT scan is recommended for further evaluation. Biliary sludge. There are no shadowing gallstones, and no sonographic evidence of acute cholecystitis. 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 Right parietotemporal lesion. Thought to be low-grade glioma Needs further eval as outpatient (May need repeat MRI) DVT Px: Heparin SQ Code Status Full Code Disposition Home Admission and Anticipated Discharge Date Admission Date: January 05, 2022 Subjective Patient is seen and examined at bedside No new complaints Slept well overnight Denies any chest pain, shortness of breath, dizziness, nausea, abdominal pain Plan to discharge home today Review of Systems Review of Systems: All systems reviewed & are unremarkable except as noted in Subjective Physical Exam Physical Exam: Physical Exam: Vitals signs as noted above General Appearance:Obese, no apparent distress Head: normocephalic, Atraumatic Eyes: normal inspection, EOMI Neck: supple, Trachea midline Respiratory/Chest: Normal breath sounds, CTA, No accessory muscle use Cardiovascular: S1, S2, No murmur Abdomen/GI:Soft, Non tender, Bowel sounds present Extremities/Musculoskeletal:normal inspection, no edema Neurologic/Psych:AAOX3, grossly no focal neurological deficits Skin: normal color, warm Results & Data Results & Data ([facility]) Vital Signs (Past 12 Hours) Vital Signs Temp Pulse Pulse Resp BP Pulse Ox O2 Del Method 01/07/22 08:00 69 01/07/22 07:38 36.8 C 64 18 117/77 95 Room Air 01/07/22 04:00 37.1 C 70 18 121/79 96 Room Air Laboratory Results Short CBC 01/07/22 Range/Units 04:28 WBC 9.58 (4.8-10.8) K/ul Hgb 16.5 (14.0-18.0) g/dl Hct 47.9 (40.1-51.0) % Plt Count 177 (130-400) K/uL BMP 01/07/22 04:28 Sodium 135 L Potassium 4.0 Chloride 103 Carbon Dioxide 24 BUN 25 H Creatinine 1.09 Glucose 96 Calcium 9.2
--- NOTE | 2022-01-07 11:33 | Discharge Summary ---
Date of Service January 07, 2022 Admission HPI Per Admitting Provider DATE OF CONSULTATION: 01/05/2022. CHIEF COMPLAINT: ST elevated MO. HISTORY OF PRESENT ILLNESS: This is a 56-year-old male with past medical history significant for hyperlipidemia, patent foramen ovale, history of low- grade glioma of brain, allergic and contact dermatitis, anxiety state, who presents with chest pain and found to have ST elevated MO. The patient is having chest pain going on for last one and half day and has some bloating in the stomach. He thought it was GI related, but yesterday he was not getting better, 5/10 chest pain all over the chest, radiated to the left arm. When he came to the ER, initial EKG was okay, but when he came back from ultrasound of abdomen, repeat EKG showed ST elevations in the anterior leads. The patient is status post cardiac catheterization, 100% occlusion of LAD, status post stent, and also angioplasty of the diagonal , tolerated the procedure okay. Currently, chest pain resolved and abdominal discomfort has resolved. Resting comfortably. Denies any headache. No blurred visions, no earache, no runny nose, no sore throat. No cough. Otherwise, appetite is okay. No neck pain. Currently, no shortness of breath, no nausea, feeling hungry. Normal bowel and bladder movements. Before this, he was ambulating fine. The patient has had low-grade glioma of brain, diagnosed in 2012. As per [facility], his 2015 MRI scan, no change. Supposed to get MRI scans every two years. He states his last MRI scan was 4 years ago and was stable. Hence since it has been stable, he was not doing anymore MRIs. Admission Exam Per Admitting Provider PHYSICAL EXAMINATION: GENERAL: The patient is of moderate build, not in acute distress. VITAL SIGNS: Temperature 36.6, pulse 85, respiratory rate 23, blood pressure 112/85, oxygen 97% on room air. HEENT: Extraocular muscles intact. Oral mucosa moist. NECK: No JVD. No neck masses. CARDIOVASCULAR: S1 and S2 heard. Regular rate and rhythm. No murmur, no gallop. RESPIRATORY SYSTEM: Normal AP diameter. No accessory muscle use. No wheezing, no crackles. ABDOMEN: Soft, bowel sounds present, nontender, no distention. CENTRAL NERVOUS SYSTEM: Cranial nerves II through XII are grossly intact, nonfocal. EXTREMITIES: Right radial cardiac catheterization site seems okay. No lower extremity edema or erythema. Principal Diagnosis ST elevation myocardial infarction Liver lesions Discharge Data Allergies Allergy/AdvReac Type Severity Reaction Status Date / Time No Known Allergies Allergy Unverified 12/18/15 14:52 Consultations 01/05/22 04:14 Consult Internal Medicine Routine 01/05/22 05:37 Consult Wound Care Nurse Routine 01/05/22 08:30 Consult Cardiology Routine Procedures Performed Operation Date: 01/05/22 03:00 Actual Procedures p Cineradiography w/Routine Exam - Fili Fraga MD, PhD p Aspiration/PCI w/MARIA DE JESUS for Stemi - Fili Fraga MD, PhD s Ultrasound Vascular Access - Fili Fraga MD, PhD Laboratory Results WBC 9.58 K/ul (4.8-10.8) 01/07/22 04:28 RBC 5.43 M/uL (4.63-6.08) 01/07/22 04:28 Hgb 16.5 g/dl (14.0-18.0) 01/07/22 04:28 Hct 47.9 % (40.1-51.0) 01/07/22 04:28 MCV 88.2 fL (80.0-100.0) 01/07/22 04:28 MCH 30.4 pg (25.0-34.0) 01/07/22 04:28 MCHC 34.4 g/dL (32.0-36.0) 01/07/22 04:28 RDW Std Deviation 41.1 fL (36.4-46.3) 01/07/22 04:28 RDW Coeff of Yael 12.7 % (11.5-14.5) 01/07/22 04:28 Plt Count 177 K/uL (130-400) 01/07/22 04:28 MPV 10.8 fL (9.4-12.4) 01/07/22 04:28 Immature Gran % (Auto) 1.4 % 01/07/22 04:28 Neut % (Auto) 56.1 % 01/07/22 04:28 Lymph % (Auto) 28.7 % 01/07/22 04:28 Johnston % (Auto) 12.2 % 01/07/22 04:28 Eos % (Auto) 1.1 % 01/07/22 04:28 Baso % (Auto) 0.5 % 01/07/22 04:28 Neut # (Auto) 5.37 K/uL (1.4-6.5) 01/07/22 04:28 Lymph # (Auto) 2.75 K/uL (1.2-3.4) 01/07/22 04:28 Johnston # (Auto) 1.17 K/uL (0.24-0.82) H 01/07/22 04:28 Eos # (Auto) 0.11 K/uL (0-0.50) 01/07/22 04:28 Baso # (Auto) 0.05 K/uL (0-0.2) 01/07/22 04:28 Immature Gran # (Auto) 0.13 K/uL (0.00-0.02) H 01/07/22 04:28 Activ Coag Time Kaolin 300 SECONDS (94-140) H 01/05/22 03:44 Sodium 135 mmol/L (136-145) L 01/07/22 04:28 Potassium 4.0 mmol/L (3.5-5.1) 01/07/22 04:28 Chloride 103 mmol/L (98-107) 01/07/22 04:28 Carbon Dioxide 24 mmol/L (21-32) 01/07/22 04:28 Anion Gap 8 (3-11) 01/07/22 04:28 BUN 25 mg/dl (6-23) H 01/07/22 04:28 Creatinine 1.09 mg/dl (0.6-1.4) 01/07/22 04:28 Est Cr Clr Drug Dosing 89.1 ml/min 01/07/22 04:28 Est GFR ( Amer) 86.3 ml/min 01/07/22 04:28 Est GFR (Non-Af Amer) 74.4 ml/min 01/07/22 04:28 BUN/Creatinine Ratio 22.9 (10-20) H 01/07/22 04:28 Glucose 96 mg/dl (70-99(Fasting)) 01/07/22 04:28 POC Glucose 114 mg/dl (70-99) H 01/05/22 05:54 Estimat Average Glucose 114 mg/dl 01/05/22 04:49 Hemoglobin A1c 5.6 % (4.5-5.6) 01/05/22 04:49 Calcium 9.2 mg/dl (8.5-10.1) 01/07/22 04:28 Phosphorus 4.0 mg/dl (2.5-4.9) 01/07/22 04:28 Magnesium 2.3 mg/dl (1.7-2.4) 01/07/22 04:28 Total Bilirubin 0.6 mg/dl (0.2-1.0) 01/05/22 08:25 AST 135 U/L (13-39) H 01/05/22 08:25 ALT 68 U/L (7-52) H 01/05/22 08:25 Alkaline Phosphatase 70 U/L (34-104) 01/05/22 08:25 Troponin I High Sens 81237.1 pg/ml (0-20) H* D 01/06/22 04:07 Total Protein 7.1 gm/dl (6.0-8.3) 01/05/22 08:25 Albumin 4.3 gm/dl (3.4-5.0) 01/05/22 08:25 Globulin 2.8 gm/dl (2.5-4.0) 01/05/22 08:25 Albumin/Globulin Ratio 1.5 (0.9-2) 01/05/22 08:25 Triglycerides 60 mg/dl (0-150) 01/05/22 04:49 Cholesterol 199 mg/dl (0-200) 01/05/22 04:49 LDL Cholesterol Direct 143 mg/dl 01/05/22 04:49 LDL Cholesterol, Calc 141 mg/dl 01/05/22 04:49 VLDL Cholesterol, Calc 12 mg/dl (0-30) 01/05/22 04:49 HDL Cholesterol 46 mg/dl 01/05/22 04:49 Cholesterol/HDL Ratio 4.3 (0-5) 01/05/22 04:49 Lipase 17 U/L (11-82) 01/05/22 00:50 Nasal Screen MRSA (PCR) Negative (Negative) 01/05/22 09:00 SARS-CoV-2, RNA, NAAT NEGATIVE (NEGATIVE) 01/05/22 02:36 Impressions Gallbladder Ultrasound 01/05/22 01:20 ULTRASOUND RIGHT UPPER QUADRANT ABDOMEN CLINICAL HISTORY: Right upper quadrant abdominal pain. COMPARISON STUDY: No priors. TECHNIQUE: Real-time, grayscale, and color flow sonography of the right upper quadrant of the abdomen was performed. Images are reviewed in the transverse and longitudinal planes. FINDINGS: Liver: The liver is enlarged and demonstrates heterogeneous increased echotexture indicating steatosis. There is no intrahepatic biliary ductal dilatation. The main portal vein is patent. There is a 6.3 x 3.3 x 5.5 cm irregular/lobulated appearing hypoechoic mass lesion suggested in the left lobe. This may contain internal calcification and shows internal flow on color imaging. There is an additional indeterminate 1.5 cm hypoechoic lesion in the right lobe. Gallbladder: There is biliary sludge. No shadowing gallstones are identified. There is no gallbladder wall thickening or pericholecystic fluid. A sonographic Lazaro's sign is reportedly absent. The common bile duct measures up to 0.6 cm in diameter. Pancreas: Visualized portions of the pancreatic head and body are normal in appearance. The splenic vein is patent. Right kidney: Survey images of the right kidney demonstrate normal size and echotexture. There is no hydronephrosis. Ascites: None. IMPRESSION: 1. No acute sonographic abnormality is seen in the right upper quadrant. 2. Hepatomegaly and hepatic steatosis. 3. There are at least 2 pathologically indeterminate hypoechoic liver lesions. The largest is in the left lobe and measures up to 6.3 cm. Although these could represent benign lesions such as hemangiomas, neoplasm is not excluded and is the diagnosis of exclusion. Correlation with a contrast-enhanced liver protocol CT scan is recommended for further evaluation. 4. Biliary sludge. There are no shadowing gallstones, and no sonographic evidence of acute cholecystitis. ACT 112: Positive. There are findings on this exam that require communication between the performing entity and the patient following Patient Test Result Information Act ([place] Act 112) guidelines. Electronically signed by: Noé Madden M.D. 01/05/2022 7:22 AM Chest X-Ray 01/05/22 05:04 XR chest 1V portable HISTORY: Atypical chest pain. status post cath COMPARISON: Chest 01/05/2022. FINDINGS: No pneumothorax. No pleural effusions. The heart remains mildly en larged. No new focal lung consolidations to suggest pneumonia. No evidence for pulmonary edema. There are low lung volumes. IMPRESSION: No acute process. ACT 112: Negative or not required by law. Electronically signed by: Silvestre Louie M.D. 01/05/2022 9:09 AM Ordered Studies 01/05/22 01:20 US gallbladder Urgent 01/05/22 02:50 Cath Imgs for PACS use only Stat Hospital Course (1) ST elevation (STEMI) myocardial infarction involving left anterior descending coronary artery: Patient is a 56 yr male presents with chest pain, found to be on ST elevated myocardial infarction. STEMI S/P PCI (drug-eluting stent into left anterior descending artery) NSVT Ischemic Cardiomyopathy PFO -ECHO: Significant LAD territory wall motion abnormalities. Moderate to severe left ventricular systolic dysfunction. EF 35 to 40%. No significant valvular disease. -CXR:No acute process. Continue aspirin, Lipitor, metoprolol, Brilinta, lisinopril Appreciate cardiology/Critical Care input Added Aldactone 12.5 mg daily Needs follow-up with cardiology upon discharge Hyperlipidemia: On statin. Liver lesions: -Gall Bladder USD:Hepatomegaly and hepatic steatosis. There are at least 2 pathologically indeterminate hypoechoic liver lesions. The largest is in the left lobe and measures up to 6.3 cm. Although these could represent benign lesions such as hemangiomas, neoplasm is not excluded and is the diagnosis of exclusion. Correlation with a contrast-enhanced liver protocol CT scan is recommended for further evaluation. Biliary sludge. There are no shadowing gallstones, and no sonographic evidence of acute cholecystitis. 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 Right parietotemporal lesion. Thought to be low-grade glioma Needs further eval as outpatient (May need repeat MRI) DVT Px: Heparin SQ Code Status Full Code Disposition Home Total Time Total Time Spent Total Time Spent (In Minutes): 45 minutes Discharge Plan Discharge Items Patient Disposition: Home - Self-Care Reason For Visit: STEMI Discharge Diagnosis: ST elevation myocardial infarction Liver lesions Activity: Per Instructions section Exercise/Sports: Wait until after follow-up appointment Non-emergency contact: Primary Care Provider and Ticker Installer Call non-emergency contact if: you have any medication questions, your symptoms worsen, your pain is concerning for you and you have a fever Follow-up/Referrals: Raúl Martinez, [Primary Care Provider] - Diet: Heart Healthy Addtl Attending Provider Instructions: Follow-up with your primary care physician Dr. Raúl Martinez in 1 week as advised Follow-up with your double end production grinder / in 2 weeks. --- Discuss with your primary care physician regarding liver lesions and get further work-up as needed. Seek immediate medical attention if your symptoms reoccur or worsen Please take all medications as instructed on discharge list below. Please call if you have any questions or problems. You can reach a [facility] hospitalist on duty at [facility] 24 hours a day by calling [phone] Home Care: * Take your medications exactly as directed. Don't skip doses. * Remember that recovery after a heart attack takes time. Plan to rest for at lease 4-8 weeks while you recover. Then return to normal activity when your doctor says it's okay. * Ask your doctor about joining a heart rehabilitation program. * Tell your doctor if you are feeling depressed. Feelings of sadness are common after a heart attack, but it is important that you speak to someone if you are feeling overwhelmed by these feelings. * If you are having chest pain, call 911 for an ambulance. Do NOT drive yourself to the hospital. * Ask your family members to learn CPR. * Learn to take your own blood pressure and pulse. Keep a record of your results. Ask your doctor when you should seek emergency medical attention. He or she will tell you which blood pressure reading is dangerous. Lifestyle Changes: * Maintain a healthy weight. Get help to lose any extra pounds. * Cut back on salt. * Limit canned, dried, packaged, and fast foods. * Don't add salt to your food. * Season foods with herbs instead of salt when you cook. * Break the smoking habit. Enroll in a stop-smoking program to improve your chances of success. * Limit fatty foods. * Ask your doctor about having your lipid levels checked regularly. * Build up your activity according to your doctor's recommendation. * Ask your doctor when it's okay to resume sexual activity. * Tell your doctor about any erectile dysfunction (ED) medication you are taking. Some ED medications are not safe if you take certain heart medications. * Try to manage stress. Follow Up: It is important for you to keep your follow up appointments with your medical provider. Addtl Newspaper Photographer Provider Instructions: ACTIVITY RECOMMENDATIONS: Excess manipulation of the wrist should be avoided for the next 24-48 hours. * No lifting over 2 pounds (approximately a 1/2 gallon of milk) with the utilized arm for 24 hours. * No strenuous activity such as bowling or tennis for 3 days. * Keep the site of the procedure covered with a bandage for 24 hours. *You may shower the day after the procedure. Do not take a tub bath or submerge the puncture site in water for the next 3 days. *Do not operate any motorized equipment for 3 days. SPECIAL CARE INSTRUCTIONS: The site may be slightly bruised and sore following your procedure. Should any of the following occur, contact the Dr. who performed your procedure. 1. Redness/inflammation, swelling, chills, or fever, or colored drainage at procedure site within 3-7 days after your procedure. 2. Coldness, discoloration, ongoing numbness, severe pain, or swelling. Expect mild tingling of hand and tenderness at the puncture site for up to three days. If this persists beyond three days, or other symptoms develop, notify the Dr. who performed your procedure. BLEEDING: If the procedure site on your wrist begins to bleed, do not panic 1. Place 1 or 2 fingers firmly just slightly above the insertion site to stop the bleeding. You may be able to feel your pulse as you hold pressure. 2. Lift your finger after 5 minutes to see if the bleeding has stopped. 3. Once the bleeding has stopped, gently wipe the wrist area clean with a bandage. * If the bleeding from your wrist does not stop after 10 minutes, or if there is a large amount of bleeding or spurting, call 911 (do not drive yourself to the hospital). SKIN IRRITATION: * You may experience some redness and/or swelling in the area where radiation was administered. If any skin irritation occurs, please contact your family physician. FOLLOW UP VISIT: Keep any scheduled doctor appointments. Pending Studies at Discharge: No Stand-Alone Forms: My [facility] [employer], Smoking Cessation Medications and DC Order Prescriptions: New Brilinta 90 mg Tablet 90 mg PO BID Qty: 60 1RF atorvastatin 40 mg Tablet 40 mg PO QAM Qty: 30 1RF spironolactone 25 mg Tablet 12.5 mg PO DAILY Qty: 30 1RF lisinopril [Zestril] 5 mg Tablet 5 mg PO QAM Qty: 30 1RF metoprolol succinate 25 mg Tablet Extended Release 24 Hr 25 mg PO BID Qty: 60 1RF aspirin 81 mg Tablet,Delayed Release (Dr/Ec) 81 mg PO QAM Qty: 30 1RF Continued Clobetasol Propionate 0.05% (Temovate 0.05%) cream 1 applic EXT PRN (Reason: ALLERGIC REACTION) Qty: 0 TACROLIMUS (TOPICAL) (PROTOPIC) 0.1 % OIN 1 applic Topical Qty: 0 Multivitamin tablet 1 tab PO DAILY Qty: 0 VITAMIN E (VITAMIN E/D-ALPHA) 200 UNIT capsule 1 cap PO DAILY Qty: 0 Discontinued ASPIRIN (ASPIRIN EC) 81 MG tablet 81 mg PO DAILY Qty: 30 2RF Discharge Orders: Discharge Order (Routine); Ordered 01/07/22 Ordered By: Jatin Malin Admission Data Admit Date/Time: 01/05/22 05:37 Attending Provider: Jatin Malin Admit Provider: Connor Huizar Primary Care Provider: Raúl Martinez Other Providers: Fili Fraga ; Codi Tong ; Elvia Foster I. ; Fabián Gordillo ; Shikha Cadena ; Macrina Capellan ; Sahara Gomez ; Eda Donaldson ; Qasim Dudley ; Connor Huizar ; Hayes Perry ; Stefanie Vu ; Jatin Malin ; Adriane Ceron ; Yaquelin Lacey ; John Mccarty ; Ashley Quintana ; Margarita Schmidt ; Phyllis Jamil ; Jessica Miranda I. ; Arjun Encinas ; Mickey Conley ; Spenser Fernandez ; Hai Perez ; Sinan Coates ; Yobani Araiza ; Wilmer Soria ; Tray Underwood ; Prince Varela ; Felipe Bradford
[2022-01-07] MEDS ORDERED: METOPROLOL SUCC 25MG EXT REL TAB PO SCH (21:00)
== END 2022-01-07 13:03 | disposition home or self-care (01) | DRG 247 ==
LOC: ED 00:25 → CC 03:09 → 1E 04:23 → SUATTDRO 04:23 → 4W 01-06 13:04